=== PATIENT | male | born 1945 | race Caucasian/White ===

== ENCOUNTER 2021-12-02 14:24 | Inpatient (IN) | payer BC, MEDICARE ==
[~2021-12-02] VITALS: Ht 167.6 cm; Wt 61.2 kg
[2021-12-02] MEDS ORDERED: BACITRACIN ZINC OINT UDPKT TOP ONE (17:00)
[2021-12-02] MEDS ORDERED: TETANUS, DIPHTHERIA, PERTUSSIS VAC/PF 0.5ML (>10YR OLD) IM ONE (17:00)
[2021-12-02] MEDS ORDERED: LIDOCAINE HCL/PF 1% 10 MG/ML 5ML VIAL INFIL ONE (17:00)
[2021-12-02] MEDS ORDERED: SODIUM CHLORIDE 0.9% 1,000 ML IV ONE (17:15)
[2021-12-02 17:59] LABS: HEMATOCRIT. 36.5 % (42.0-52.0); MEAN CORPUSCULAR HEMOGLOBIN 31.2 pg (28.0-32.0); MEAN CORPUSCULAR VOLUME 95.2 fL (80.0-94.0); MEAN PLATELET VOLUME 6.3 fl (7.4-10.4); PLATELET 740 x1000/uL (130-400); RED BLOOD CELL COUNT 3.84 mill/uL (4.7-6.1); RED CELL DISTRIBUTION WIDTH 14.4 % (11.6-14.6)
[2021-12-02 18:23] LABS: CHLORIDE 89 mEq/L (98-107)
[2021-12-02 18:29] LABS: PLATELET ESTIMATE INCREASED
[2021-12-02 18:35] LABS: ETHANOL BLOOD < 10 mg/dL
[2021-12-02] MEDS ORDERED: ACETAMINOPHEN 325MG TABLET PO PRN ×2 (23:45)
[2021-12-02] MEDS ORDERED: GUAIFENESIN 200MG/10ML SUGAR FREE UDC PO PRN (23:45)
[2021-12-02] MEDS ORDERED: IPRATROPIUM/ALBUTEROL 0.5-3(2.5)MG/3ML NEB NEB PRN (23:45)
[2021-12-02] MEDS ORDERED: ONDANSETRON HCL 4MG/2ML INJ IV PRN (23:45)
[2021-12-02] MEDS ORDERED: ENOXAPARIN 40MG/0.4ML SYR SUBCUT SCH (23:45)
[2021-12-02] MEDS ORDERED: CLONIDINE 0.1MG TABLET PO PRN (23:45)
[2021-12-02] MEDS ORDERED: MAGNESIUM/ALUMINUM HYDROXIDE/SIMETHICONE 30ML UDC PO PRN (23:45)
[2021-12-02] MEDS ORDERED: MORPHINE SULFATE 2 MG/ML CPJ (NOT FOR IM USE) IV PRN (23:45)
[2021-12-02] MEDS ORDERED: HYDROCODONE/ACETAMINOPHEN 5/325MG TABLET PO PRN (23:45)
[2021-12-03 00:40] VITALS: BP 113/84
[2021-12-03] MEDS: SODIUM CHLORIDE 0.9% 1,000 ML IV SCH ×2 (00:46→11:20)
[2021-12-03 00:53] VITALS: BP 113/84
[2021-12-03] MEDS ORDERED: AMLO2.5T45 PO (02:45)
[2021-12-03 07:48] VITALS: BP 135/83
[2021-12-03 10:23] LABS: HEMATOCRIT. 30.9 % (42.0-52.0); HEMOGLOBIN. 10.5 g/dL (14.0-18.0); MEAN CORPUSCULAR VOLUME 94.3 fL (80.0-94.0); MEAN PLATELET VOLUME 6.4 fl (7.4-10.4); PLATELET 600 x1000/uL (130-400); RED BLOOD CELL COUNT 3.27 mill/uL (4.7-6.1); RED CELL DISTRIBUTION WIDTH 14.5 % (11.6-14.6)
[2021-12-03 12:19] VITALS: BP 124/82
[2021-12-03] MEDS ORDERED: MORPHINE SULFATE 2 MG/ML CPJ (NOT FOR IM USE) IV PRN (13:15)
[2021-12-03] MEDS ORDERED: NICARDIPINE 100 MG in SODIUM CHLORIDE 0.9% 60 ML IV PRN (13:15)
[2021-12-03] MEDS ORDERED: DEXT 5%/LACTATED RINGERS 1,000 ML IV SCH (13:15)
[2021-12-03] MEDS ORDERED: CEFAZOLIN SODIUM 1000MG/VIAL IV SCH (14:00)
[2021-12-03] MEDS ORDERED: ENOXAPARIN 40MG/0.4ML SYR SUBCUT SCH (14:00)
[2021-12-03 15:20] VITALS: BP 120/81
[2021-12-03 17:55] VITALS: BP 120/82
[2021-12-03] MEDS ORDERED: NALOXONE HCL 0.4MG/ML VIAL IV PRN (18:30)
[2021-12-04 07:40] LABS: PLATELET ESTIMATE INCREASED
== END 2021-12-03 19:00 | disposition home or self-care (01) | DRG 125 ==
LOC: ER 14:24 → SUPCPDRO 20:08 → 8WST 23:27 → ENRESERV 23:34
PROVIDERS: ADMIT Internal Medicine; ATTEND Internal Medicine
PROC: 0HQ1XZZ Repair Face Skin, External Approach (ICD-10-PCS; principal; 2021-12-02)
DX: S01.112A Laceration without foreign body of left eyelid and periocular area, initial encounter (principal); I10 Essential (primary) hypertension; S91.111A Laceration without foreign body of right great toe without damage to nail, initial encounter; W10.1XXA Fall (on)(from) sidewalk curb, initial encounter; Y93.01 Activity, walking, marching and hiking; Z96.649 Presence of unspecified artificial hip joint; Y92.89 Other specified places as the place of occurrence of the external cause; Y99.8 Other external cause status
CPT/HCPCS: 36415; 70480; 71045; 72141; 80048; 80053; 80320; 83735; 83880; 84100; 84484; 85025; 86850; 86900; 93005; 99291; J1650; J3490; J7030; L0172; G0480

== ENCOUNTER 2021-12-28 16:06 | Inpatient (IN) | payer BC ==
[~2021-12-28] VITALS: Ht 167.6 cm; Wt 66.3 kg
[~2021-12-28 16:06] MED LIST: AMLO2.5T45 PO
[2021-12-28 18:53] LABS: HEMATOCRIT. 24.1 % (42.0-52.0); HEMOGLOBIN. 7.8 g/dL (14.0-18.0); MEAN CORPUSCULAR HEMOGLOBIN 29.4 pg (28.0-32.0); MEAN CORPUSCULAR VOLUME 90.3 fL (80.0-94.0); MEAN PLATELET VOLUME 6.5 fl (7.4-10.4); PLATELET 577 x1000/uL (130-400); RED BLOOD CELL COUNT 2.67 mill/uL (4.7-6.1); RED CELL DISTRIBUTION WIDTH 16.4 % (11.6-14.6)
[2021-12-28 19:06] LABS: CHLORIDE 96 mEq/L (98-107)
[2021-12-28 19:43] LABS: ETHANOL BLOOD < 10 mg/dL
[2021-12-28 19:45] LABS: PLATELET ESTIMATE MARKEDLY INCREASED
[2021-12-28] MEDS ORDERED: SODIUM CHLORIDE 0.9% 1,000 ML IV NR (19:45)
[2021-12-28 19:55] LABS: TOTAL IRON BINDING CAPACITY 333 ug/dL (250-450)
[2021-12-29] VITALS (11 sets, daily range): BP systolic 110–155; BP diastolic 74–90
[2021-12-29] MEDS ORDERED: ONDANSETRON HCL 4MG/2ML INJ IV PRN (00:15)
[2021-12-29] MEDS ORDERED: DIPHENHYDRAMINE 50MG/ML VIAL IV PRN (00:15)
[2021-12-29] MEDS ORDERED: ACETAMINOPHEN 325MG TABLET PO PRN ×2 (00:15)
[2021-12-29] MEDS ORDERED: CLONIDINE 0.1MG TABLET PO PRN (00:15)
[2021-12-29] MEDS ORDERED: ZOLPIDEM TARTRATE 5MG TABLET PO PRN (00:15)
[2021-12-29] MEDS ORDERED: MAGNESIUM/ALUMINUM HYDROXIDE/SIMETHICONE 30ML UDC PO PRN (00:15)
[2021-12-29] MEDS: SODIUM CHLORIDE 0.9% 1,000 ML IV SCH ×2 (00:42→20:35)
[2021-12-29 08:13] LABS: BASOPHILS % 1.1 % (0.0-2.0); HEMATOCRIT. 26.7 % (42.0-52.0); HEMOGLOBIN. 8.6 g/dL (14.0-18.0); LYMPHOCYTES % 14.5 % (20.0-50.0); MEAN CORPUSCULAR HEMOGLOBIN 29.1 pg (28.0-32.0); MEAN CORPUSCULAR VOLUME 90.4 fL (80.0-94.0); MEAN PLATELET VOLUME 6.5 fl (7.4-10.4); MONOCYTES % 7.2 % (2.0-8.0); NEUTROPHILS % 74.2 % (40.0-76.0); PLATELET 514 x1000/uL (130-400); RED BLOOD CELL COUNT 2.96 mill/uL (4.7-6.1); RED CELL DISTRIBUTION WIDTH 15.6 % (11.6-14.6)
[2021-12-29] MEDS: THIAMINE HCL 100MG TABLET PO SCH (08:40)
[2021-12-29] MEDS: IRON SUCROSE COMPLEX 100 MG/5 ML ML IV SCH (08:41)
[2021-12-29 12:38] LABS: BASOPHILS % 0.5 % (0.0-2.0); EOSINOPHILS % 2.2 % (0.0-5.0); HEMATOCRIT. 26.2 % (42.0-52.0); HEMOGLOBIN. 8.6 g/dL (14.0-18.0); LYMPHOCYTES % 9.3 % (20.0-50.0); MEAN CORPUSCULAR HEMOGLOBIN 29.9 pg (28.0-32.0); MEAN CORPUSCULAR VOLUME 91.4 fL (80.0-94.0); MEAN PLATELET VOLUME 6.1 fl (7.4-10.4); MONOCYTES % 6.6 % (2.0-8.0); NEUTROPHILS % 81.4 % (40.0-76.0); PLATELET 463 x1000/uL (130-400); RED BLOOD CELL COUNT 2.87 mill/uL (4.7-6.1); RED CELL DISTRIBUTION WIDTH 15.9 % (11.6-14.6)
[2021-12-30] VITALS (7 sets, daily range): BP systolic 117–143; BP diastolic 72–90
[2021-12-30 06:29] LABS: BASOPHILS % 0.6 % (0.0-2.0); EOSINOPHILS % 2.3 % (0.0-5.0); HEMATOCRIT. 24.5 % (42.0-52.0); HEMOGLOBIN. 8.2 g/dL (14.0-18.0); LYMPHOCYTES % 10.3 % (20.0-50.0); MEAN CORPUSCULAR HEMOGLOBIN 30.1 pg (28.0-32.0); MEAN PLATELET VOLUME 6.5 fl (7.4-10.4); MONOCYTES % 4.8 % (2.0-8.0); PLATELET 480 x1000/uL (130-400); RED BLOOD CELL COUNT 2.73 mill/uL (4.7-6.1); RED CELL DISTRIBUTION WIDTH 15.7 % (11.6-14.6)
[2021-12-30] MEDS: THIAMINE HCL 100MG TABLET PO SCH (08:56)
[2021-12-30] MEDS: IRON SUCROSE COMPLEX 100 MG/5 ML ML IV SCH (08:56)
[2021-12-30] MEDS ORDERED: POTASSIUM CHLORIDE 20MEQ TABLET SR PO NR (10:30)
[2021-12-30] MEDS ORDERED: MAGNESIUM 2 G PREMIX 50 ML IV NR (12:00)
[2021-12-30] MEDS: SODIUM CHLORIDE 0.9% 1,000 ML IV SCH (16:15)
[2021-12-31] VITALS: BP 130/73
[2021-12-31 04:00] VITALS: BP 150/87
[2021-12-31 08:00] VITALS: BP 144/88
[2021-12-31] MEDS: THIAMINE HCL 100MG TABLET PO SCH (08:37)
[2021-12-31] MEDS: IRON SUCROSE COMPLEX 100 MG/5 ML ML IV SCH (08:37)
[2021-12-31 12:00] VITALS: BP 136/79
[2021-12-31] MEDS: SODIUM CHLORIDE 0.9% 1,000 ML IV SCH (12:15)
[2021-12-31 14:54] VITALS: BP 135/80
== END 2021-12-31 15:45 | disposition home or self-care (01) | DRG 812 ==
LOC: ER 16:06 → 8WST 20:39 → EDBEDREQTM 20:41 → EDBEDREQ 20:41 → ENRESERV 21:37
PROVIDERS: ADMIT Internal Medicine; ATTEND Internal Medicine
PROC: 30233N1 Transfusion of Nonautologous Red Blood Cells into Peripheral Vein, Percutaneous Approach (ICD-10-PCS; principal; 2021-12-28)
DX: D64.9 Anemia, unspecified (principal); E87.1 Hypo-osmolality and hyponatremia; N17.9 Acute kidney failure, unspecified; E61.1 Iron deficiency; I10 Essential (primary) hypertension; F10.10 Alcohol abuse, uncomplicated; M48.00 Spinal stenosis, site unspecified; M47.892 Other spondylosis, cervical region
CPT/HCPCS: 36415; 80048; 80053; 80320; 82962; 83540; 83550; 83735; 84484; 85025; 86850; 86900; 86920; 93005; 99285; J3475; J7030; P9016; G0480

== ENCOUNTER 2022-04-08 16:08 | Inpatient (IN) | payer BC, MEDICAID ==
[~2022-04-08] VITALS: Ht 182.9 cm; Wt 83.0 kg
[2022-04-08] MEDS ORDERED: VECURONIUM BROMIDE 10 MG/VIAL IV ONE (16:30)
[2022-04-08] MEDS ORDERED: SODIUM CHLORIDE 0.9% 1,000 ML IV ONE (16:30)
[2022-04-08 16:49] LABS: BASOPHILS % 0.5 % (0.0-2.0); EOSINOPHILS % 2.1 % (0.0-5.0); HEMATOCRIT. 35.4 % (42.0-52.0); HEMOGLOBIN. 11.9 g/dL (14.0-18.0); LYMPHOCYTES % 23.8 % (20.0-50.0); MEAN CORPUSCULAR HEMOGLOBIN 29.7 pg (28.0-32.0); MEAN CORPUSCULAR VOLUME 88.1 fL (80.0-94.0); MEAN PLATELET VOLUME 6.7 fl (7.4-10.4); MONOCYTES % 4.5 % (2.0-8.0); NEUTROPHILS % 69.1 % (40.0-76.0); PLATELET 488 x1000/uL (130-400); RED BLOOD CELL COUNT 4.02 mill/uL (4.7-6.1); RED CELL DISTRIBUTION WIDTH 18.3 % (11.6-14.6)
[2022-04-08 16:56] LABS: CHLORIDE 94 mEq/L (98-107)
[2022-04-08 17:35] LABS: BG BASE EXCESS 5.5 mmol/L (-2.0-2.0); BG CARBOXYHEMOGLOBIN 0.6 % (0.5-1.5); BG DEOXYHEMOGLOBIN 2.5 % (0.0-5.0); BG FRACTION INSPIRED OXYGEN 100; BG HCO3 ACT 34.3 mmol/L (22.0-26.0); BG METHEMOGLOBIN 0.3 % (0.0-1.5); BG OXYGEN SATURATION 97.5 % (92.0-98.5); BG OXYHEMOGLOBIN 96.6 % (94.0-97.0); BG PCO2 72.7 mmHg (35.0-45.0); BG PH 7.292 (7.350-7.450); BG PO2 104.2 mmHg (75.0-100.0); BG SAMPLE SITE RIGHT RADIAL; BG TOTAL HEMOGLOBIN 12.7 g/dL (12.0-18.0); BG VENT MODE VENT - AC
[2022-04-08] MEDS ORDERED: VANCOMYCIN 1G PREMIX 200 ML IV ONE (18:00)
[2022-04-08] MEDS ORDERED: PIPERACILLIN/TAZ 3.375G PREMIX 50 ML IV ONE (18:00)
[2022-04-08] MEDS ORDERED: ALBUTEROL (0.083%) 2.5MG/3ML NEB HHN ONE (21:45)
[2022-04-09] VITALS (8 sets, daily range): BP systolic 102–117; BP diastolic 62–77
[2022-04-09] MEDS: SODIUM CHLORIDE 0.9% 1,000 ML IV SCH ×2 (10:45→22:01)
[2022-04-09 10:51] LABS: BG BASE EXCESS 7.6 mmol/L (-2.0-2.0); BG CARBOXYHEMOGLOBIN 0.3 % (0.5-1.5); BG DEOXYHEMOGLOBIN 0.5 % (0.0-5.0); BG FRACTION INSPIRED OXYGEN 100; BG HCO3 ACT 31.7 mmol/L (22.0-26.0); BG METHEMOGLOBIN 0.4 % (0.0-1.5); BG OXYGEN SATURATION 99.5 % (92.0-98.5); BG OXYHEMOGLOBIN 98.8 % (94.0-97.0); BG PCO2 42.6 mmHg (35.0-45.0); BG PO2 205.8 mmHg (75.0-100.0); BG SAMPLE SITE LEFT RADIAL; BG TOTAL HEMOGLOBIN 12.8 g/dL (12.0-18.0); BG TOTAL RESPIRATORY RATE 18 b/min; BG VENT MODE PRVC
[2022-04-09] MEDS: PIPERACILLIN/TAZOBACTAM 3.375 G in DEXTROSE 5% WATER 50 ML IV SCH ×2 (13:36→21:55)
[2022-04-09 16:11] LABS: HEMATOCRIT. 32.2 % (42.0-52.0); HEMOGLOBIN. 10.8 g/dL (14.0-18.0); LYMPHOCYTES % 10.9 % (20.0-50.0); MEAN CORPUSCULAR HEMOGLOBIN 29.5 pg (28.0-32.0); MEAN PLATELET VOLUME 6.9 fl (7.4-10.4); MONOCYTES % 6.7 % (2.0-8.0); NEUTROPHILS % 79.4 % (40.0-76.0); PLATELET 362 x1000/uL (130-400); RED BLOOD CELL COUNT 3.66 mill/uL (4.7-6.1); RED CELL DISTRIBUTION WIDTH 18.2 % (11.6-14.6)
[2022-04-09 16:46] LABS: CHLORIDE 91 mEq/L (98-107)
[2022-04-09] MEDS: IPRATROPIUM/ALBUTEROL 0.5-3(2.5)MG/3ML NEB HHN SCH (18:00)
[2022-04-09] MEDS: METHYLPREDNISOLONE SOD SUCC 40 MG/ML VIAL IV SCH (18:54)
[2022-04-09 22:56] LABS: CLARITY URINE CLEAR (CLEAR); COLOR URINE YELLOW (YELLOW); KETONES URINE NEGATIVE (NEGATIVE); LEUKOCYTE ESTERASE URINE NEGATIVE (NEGATIVE); NITRITE URINE NEGATIVE (NEGATIVE); OCCULT BLOOD URINE NEGATIVE (NEGATIVE); PH URINE >=9.0 (4.5-8.0); PROTEIN URINE 1+ (NEGATIVE); SPECIFIC GRAVITY URINE 1.018 (1.005-1.030); UROBILINOGEN URINE 0.2 E.U./dL (0.2-1.0)
[2022-04-09] MEDS: MEROPENEM 1,000 MG in SODIUM CHLORIDE 0.9% 100 ML IV SCH (23:55)
[2022-04-10] VITALS (14 sets, daily range): BP systolic 98–142; BP diastolic 56–87
[2022-04-10] MEDS: SODIUM CHLORIDE 0.9% 1,000 ML IV SCH
[2022-04-10] MEDS: IPRATROPIUM/ALBUTEROL 0.5-3(2.5)MG/3ML NEB HHN SCH ×4 (01:12→20:24)
[2022-04-10] MEDS: METHYLPREDNISOLONE SOD SUCC 40 MG/ML VIAL IV SCH ×3 (02:27→17:01)
[2022-04-10] MEDS: MEROPENEM 1,000 MG in SODIUM CHLORIDE 0.9% 100 ML IV SCH ×3 (05:19→21:02)
[2022-04-10 05:47] LABS: HEMATOCRIT. 29.4 % (42.0-52.0); HEMOGLOBIN. 9.9 g/dL (14.0-18.0); MEAN CORPUSCULAR VOLUME 85.7 fL (80.0-94.0); MEAN PLATELET VOLUME 7.1 fl (7.4-10.4); PLATELET 373 x1000/uL (130-400); RED BLOOD CELL COUNT 3.43 mill/uL (4.7-6.1); RED CELL DISTRIBUTION WIDTH 18.2 % (11.6-14.6)
[2022-04-10 07:38] LABS: CHLORIDE 93 mEq/L (98-107)
[2022-04-10] MEDS: ENOXAPARIN 40MG/0.4ML SYR SUBCUT SCH (08:40)
[2022-04-10] MEDS: PANTOPRAZOLE SODIUM 40 MG/VIAL IV SCH (08:40)
[2022-04-10] MEDS: AMLODIPINE 5MG TABLET PO SCH (08:41)
[2022-04-10] MEDS ORDERED: POTASSIUM CHLORIDE 20MEQ/PACKET PEG NR (10:15)
[2022-04-10 13:26] LABS: PLATELET ESTIMATE NORMAL
[2022-04-11] VITALS (20 sets, daily range): BP systolic 108–148; BP diastolic 53–113
[2022-04-11] MEDS: IPRATROPIUM/ALBUTEROL 0.5-3(2.5)MG/3ML NEB HHN SCH ×4 (01:02→20:13)
[2022-04-11] MEDS: METHYLPREDNISOLONE SOD SUCC 40 MG/ML VIAL IV SCH ×3 (01:47→17:23)
[2022-04-11] MEDS: MEROPENEM 1,000 MG in SODIUM CHLORIDE 0.9% 100 ML IV SCH ×2 (05:20→13:44)
[2022-04-11 06:32] LABS: HEMATOCRIT. 28.4 % (42.0-52.0); HEMOGLOBIN. 9.8 g/dL (14.0-18.0); MEAN CORPUSCULAR HEMOGLOBIN 30.2 pg (28.0-32.0); MEAN CORPUSCULAR VOLUME 87.5 fL (80.0-94.0); MEAN PLATELET VOLUME 7.4 fl (7.4-10.4); PLATELET 370 x1000/uL (130-400); RED BLOOD CELL COUNT 3.24 mill/uL (4.7-6.1); RED CELL DISTRIBUTION WIDTH 18.5 % (11.6-14.6)
[2022-04-11 08:04] LABS: CHLORIDE 97 mEq/L (98-107)
[2022-04-11 08:56] LABS: BG BASE EXCESS 2.1 mmol/L (-2.0-2.0); BG CARBOXYHEMOGLOBIN 0.3 % (0.5-1.5); BG DEOXYHEMOGLOBIN 4.1 % (0.0-5.0); BG FRACTION INSPIRED OXYGEN 40; BG HCO3 ACT 25.7 mmol/L (22.0-26.0); BG METHEMOGLOBIN 0.2 % (0.0-1.5); BG OXYGEN SATURATION 95.9 % (92.0-98.5); BG OXYHEMOGLOBIN 95.4 % (94.0-97.0); BG PCO2 36.3 mmHg (35.0-45.0); BG PH 7.468 (7.350-7.450); BG PO2 78.7 mmHg (75.0-100.0); BG SAMPLE SITE RIGHT RADIAL; BG TOTAL HEMOGLOBIN 10.8 g/dL (12.0-18.0); BG VENT MODE PRVC
[2022-04-11] MEDS: PANTOPRAZOLE SODIUM 40 MG/VIAL IV SCH (10:17)
[2022-04-11] MEDS: ENOXAPARIN 40MG/0.4ML SYR SUBCUT SCH (10:18)
[2022-04-11] MEDS: AMLODIPINE 5MG TABLET PO SCH (10:18)
[2022-04-11] MEDS: SODIUM CHLORIDE 0.9% 1,000 ML IV SCH (10:19)
[2022-04-11 14:22] LABS: PLATELET ESTIMATE NORMAL
[2022-04-11] MEDS ORDERED: ACETAMINOPHEN 325MG TABLET PO PRN (19:10)
[2022-04-11] MEDS: FAMOTIDINE 20MG/2ML VIAL IV SCH (21:08)
[2022-04-12] VITALS (15 sets, daily range): BP systolic 112–142; BP diastolic 44–90
[2022-04-12] MEDS: IPRATROPIUM/ALBUTEROL 0.5-3(2.5)MG/3ML NEB HHN SCH ×4 (00:13→20:33)
[2022-04-12] MEDS: METHYLPREDNISOLONE SOD SUCC 40 MG/ML VIAL IV SCH ×3 (01:34→18:36)
[2022-04-12] MEDS: FAMOTIDINE 20MG/2ML VIAL IV SCH ×2 (08:36→21:10)
[2022-04-12] MEDS: AMLODIPINE 5MG TABLET PO SCH (08:36)
[2022-04-12] MEDS: ENOXAPARIN 40MG/0.4ML SYR SUBCUT SCH (08:36)
[2022-04-12] MEDS: CEFTRIAXONE 2 G in DEXTROSE 5% WATER 50 ML IV SCH (08:37)
[2022-04-13] VITALS (18 sets, daily range): BP systolic 121–165; BP diastolic 73–106
[2022-04-13] MEDS: IPRATROPIUM/ALBUTEROL 0.5-3(2.5)MG/3ML NEB HHN SCH ×4 (00:28→19:45)
[2022-04-13] MEDS: METHYLPREDNISOLONE SOD SUCC 40 MG/ML VIAL IV SCH ×3 (01:30→17:16)
[2022-04-13] MEDS: CEFTRIAXONE 2 G in DEXTROSE 5% WATER 50 ML IV SCH (08:04)
[2022-04-13] MEDS: AMLODIPINE 5MG TABLET PO SCH (08:04)
[2022-04-13] MEDS: FAMOTIDINE 20MG/2ML VIAL IV SCH ×2 (08:04→21:27)
[2022-04-13] MEDS: ENOXAPARIN 40MG/0.4ML SYR SUBCUT SCH (08:05)
[2022-04-14] VITALS (16 sets, daily range): BP systolic 119–156; BP diastolic 78–103
[2022-04-14] MEDS: METHYLPREDNISOLONE SOD SUCC 40 MG/ML VIAL IV SCH ×3 (01:55→16:06)
[2022-04-14] MEDS: FAMOTIDINE 20MG/2ML VIAL IV SCH ×2 (08:25→21:00)
[2022-04-14] MEDS: CEFTRIAXONE 2 G in DEXTROSE 5% WATER 50 ML IV SCH (08:25)
[2022-04-14] MEDS: ENOXAPARIN 40MG/0.4ML SYR SUBCUT SCH (08:26)
[2022-04-14] MEDS: AMLODIPINE 5MG TABLET PO SCH (08:26)
[2022-04-14] MEDS: IPRATROPIUM/ALBUTEROL 0.5-3(2.5)MG/3ML NEB HHN SCH ×2 (14:04→20:29)
[2022-04-15] VITALS (12 sets, daily range): BP systolic 138–173; BP diastolic 81–125
[2022-04-15] MEDS: IPRATROPIUM/ALBUTEROL 0.5-3(2.5)MG/3ML NEB HHN SCH ×2 (01:29→07:51)
[2022-04-15] MEDS: FAMOTIDINE 20MG/2ML VIAL IV SCH (08:19)
[2022-04-15] MEDS: CEFTRIAXONE 2 G in DEXTROSE 5% WATER 50 ML IV SCH (08:19)
[2022-04-15] MEDS: METHYLPREDNISOLONE SOD SUCC 40 MG/ML VIAL IV SCH (08:20)
[2022-04-15] MEDS: AMLODIPINE 5MG TABLET PO SCH (08:21)
[2022-04-15] MEDS: ENOXAPARIN 40MG/0.4ML SYR SUBCUT SCH (08:23)
[2022-04-15] MEDS ORDERED: HYDRALAZINE 20MG/ML VIAL IV NR (14:00)
== END 2022-04-15 14:37 | DRG 870 ==
LOC: ER 16:08 → EDBEDREQ 19:07 → 7EST 04-09 00:23 → MICUSO 04-09 01:19 → 5EST 04-09 11:14
PROVIDERS: ADMIT Internal Medicine; ATTEND Internal Medicine
PROC: 5A1955Z Respiratory Ventilation, Greater than 96 Consecutive Hours (ICD-10-PCS; principal; 2022-04-09)
DX: A41.51 Sepsis due to Escherichia coli [E. coli] (principal); J96.20 Acute and chronic respiratory failure, unspecified whether with hypoxia or hypercapnia; J15.6 Pneumonia due to other Gram-negative bacteria; E44.0 Moderate protein-calorie malnutrition; Z99.11 Dependence on respirator [ventilator] status; E87.1 Hypo-osmolality and hyponatremia; G93.49 Other encephalopathy; Z20.822 Contact with and (suspected) exposure to COVID-19; I10 Essential (primary) hypertension; R13.10 Dysphagia, unspecified; E78.5 Hyperlipidemia, unspecified; F10.20 Alcohol dependence, uncomplicated; Y95 Nosocomial condition; D64.9 Anemia, unspecified; Z96.649 Presence of unspecified artificial hip joint; Z93.0 Tracheostomy status; Z93.1 Gastrostomy status; Z68.24 Body mass index [BMI] 24.0-24.9, adult
CPT/HCPCS: 36415; 36600; 71045; 80048; 80053; 81003; 82375; 82805; 82962; 84145; 85025; 87070; 87077; 87186; 87426; 93005; 94002; 94003; 94640; 99291; C9113; C9803; J0360; J0696; J1650; J2185; J2543; J2920; J3370; J3490; J7030; J7050; J7060; U0003; U0005

== ENCOUNTER 2022-04-23 07:18 | Inpatient (IN) | payer BC, MEDICAID ==
[~2022-04-23] VITALS: Ht 177.8 cm; Wt 84.1 kg
[2022-04-23] VITALS (7 sets, daily range): BP systolic 85–120; BP diastolic 36–77
[2022-04-23] MEDS: IPRATROPIUM/ALBUTEROL 0.5-3(2.5)MG/3ML NEB HHN SCH ×3 (00:47→20:50)
[2022-04-23] MEDS ORDERED: SODIUM CHLORIDE 0.9% 1,000 ML IV ONE (07:45)
[2022-04-23 08:15] LABS: CHLORIDE 96 mEq/L (98-107)
[2022-04-23 08:24] LABS: HEMATOCRIT. 36.3 % (42.0-52.0); HEMOGLOBIN. 12.1 g/dL (14.0-18.0); MEAN CORPUSCULAR HEMOGLOBIN 29.9 pg (28.0-32.0); MEAN CORPUSCULAR VOLUME 89.6 fL (80.0-94.0); MEAN PLATELET VOLUME 6.9 fl (7.4-10.4); PLATELET 274 x1000/uL (130-400); RED BLOOD CELL COUNT 4.05 mill/uL (4.7-6.1); RED CELL DISTRIBUTION WIDTH 19.1 % (11.6-14.6)
[2022-04-23 08:24] LABS: BG CARBOXYHEMOGLOBIN 0.8 % (0.5-1.5); BG DEOXYHEMOGLOBIN 11.9 % (0.0-5.0); BG FRACTION INSPIRED OXYGEN 100; BG HCO3 ACT 32.9 mmol/L (22.0-26.0); BG METHEMOGLOBIN 0.2 % (0.0-1.5); BG OXYHEMOGLOBIN 87.1 % (94.0-97.0); BG PCO2 64.5 mmHg (35.0-45.0); BG PH 7.325 (7.350-7.450); BG PO2 58.3 mmHg (75.0-100.0); BG SAMPLE SITE RIGHT RADIAL; BG TOTAL HEMOGLOBIN 12.8 g/dL (12.0-18.0); BG TOTAL RESPIRATORY RATE 12 b/min; BG VENT MODE VENT - AC
[2022-04-23 08:27] LABS: PROTHROMBIN TIME 10.6 sec (9.6-11.0)
[2022-04-23 09:06] LABS: PLATELET ESTIMATE NORMAL
[2022-04-23] MEDS ORDERED: PIPERACILLIN/TAZ 3.375G PREMIX 50 ML IV SCH (09:30)
[2022-04-23] MEDS ORDERED: PIPERACILLIN/TAZOBACTAM 3.375GM/50ML PREMIX IV ONE (09:30)
[2022-04-23] MEDS: GUAIFENESIN 200MG/10ML SUGAR FREE UDC PO SCH ×2 (12:00→18:00)
[2022-04-23] MEDS: FUROSEMIDE 40MG/4ML VIAL IVP SCH (12:29)
[2022-04-23] MEDS: ACETYLCYSTEINE 100MG/ML 10% VIAL 4ML INH SCH ×3 (14:10→21:04)
[2022-04-23] MEDS ORDERED: ACETAMINOPHEN 325MG TABLET PO PRN (14:15)
[2022-04-23] MEDS ORDERED: ONDANSETRON HCL 4MG/2ML INJ IV PRN (14:15)
[2022-04-23] MEDS: METHYLPREDNISOLONE SOD SUCC 40 MG/ML VIAL IV SCH ×2 (17:29→22:20)
[2022-04-24] VITALS (27 sets, daily range): BP systolic 87–144; BP diastolic 34–117
[2022-04-24] MEDS: IPRATROPIUM/ALBUTEROL 0.5-3(2.5)MG/3ML NEB HHN SCH ×6 (00:48→20:36)
[2022-04-24] MEDS: GUAIFENESIN 200MG/10ML SUGAR FREE UDC PO SCH ×4 (01:13→18:13)
[2022-04-24 07:13] LABS: HEMATOCRIT. 32.6 % (42.0-52.0); HEMOGLOBIN. 11.1 g/dL (14.0-18.0); MEAN CORPUSCULAR HEMOGLOBIN 29.8 pg (28.0-32.0); MEAN CORPUSCULAR VOLUME 87.7 fL (80.0-94.0); PLATELET 262 x1000/uL (130-400); RED BLOOD CELL COUNT 3.71 mill/uL (4.7-6.1)
[2022-04-24] MEDS: METHYLPREDNISOLONE SOD SUCC 40 MG/ML VIAL IV SCH ×3 (07:17→21:52)
[2022-04-24 08:07] LABS: CHLORIDE 92 mEq/L (98-107)
[2022-04-24] MEDS: ACETYLCYSTEINE 100MG/ML 10% VIAL 4ML INH SCH ×2 (09:25→15:53)
[2022-04-24] MEDS: FUROSEMIDE 40MG/4ML VIAL IVP SCH (09:58)
[2022-04-24 13:06] LABS: PLATELET ESTIMATE NORMAL
[2022-04-24 13:10] LABS: BG BASE EXCESS 10.8 mmol/L (-2.0-2.0); BG CARBOXYHEMOGLOBIN 0.2 % (0.5-1.5); BG DEOXYHEMOGLOBIN 13.5 % (0.0-5.0); BG HCO3 ACT 33.6 mmol/L (22.0-26.0); BG METHEMOGLOBIN 0.3 % (0.0-1.5); BG OXYGEN SATURATION 86.4 % (92.0-98.5); BG PCO2 37.7 mmHg (35.0-45.0); BG PH 7.568 (7.350-7.450); BG PO2 48.9 mmHg (75.0-100.0); BG SAMPLE SITE RIGHT BRACHIAL; BG TOTAL HEMOGLOBIN 12.3 g/dL (12.0-18.0); BG VENT MODE VENT - AC
[2022-04-24 17:46] LABS: INR 1.1; PROTHROMBIN TIME 11.3 sec (9.6-11.0)
[2022-04-25] VITALS (16 sets, daily range): BP systolic 93–142; BP diastolic 59–116
[2022-04-25] MEDS: IPRATROPIUM/ALBUTEROL 0.5-3(2.5)MG/3ML NEB HHN SCH ×6 (00:14→20:43)
[2022-04-25] MEDS: ACETYLCYSTEINE 100MG/ML 10% VIAL 4ML INH SCH ×3 (00:18→16:05)
[2022-04-25] MEDS: GUAIFENESIN 200MG/10ML SUGAR FREE UDC PO SCH ×5 (01:23→23:51)
[2022-04-25] MEDS: METHYLPREDNISOLONE SOD SUCC 40 MG/ML VIAL IV SCH ×3 (07:12→22:00)
[2022-04-25] MEDS: FUROSEMIDE 40MG/4ML VIAL IVP SCH (09:20)
[2022-04-25] MEDS: PIPERACILLIN/TAZOBACTAM 3.375 G in DEXTROSE 5% WATER 50 ML IV SCH ×2 (11:49→22:00)
[2022-04-25] MEDS: SODIUM CHLORIDE 3% FOR INH 4ML UD NEB INH SCH (12:21)
[2022-04-25] MEDS ORDERED: SODIUM CHLORIDE 3% FOR INH 4ML UD NEB INH SCH (13:15)
[2022-04-26] VITALS (12 sets, daily range): BP systolic 92–120; BP diastolic 57–74
[2022-04-26] MEDS: IPRATROPIUM/ALBUTEROL 0.5-3(2.5)MG/3ML NEB HHN SCH ×6 (00:58→20:53)
[2022-04-26] MEDS: SODIUM CHLORIDE 3% FOR INH 4ML UD NEB INH SCH ×2 (00:59→12:44)
[2022-04-26] MEDS: GUAIFENESIN 200MG/10ML SUGAR FREE UDC PO SCH (06:00)
[2022-04-26] MEDS: PIPERACILLIN/TAZOBACTAM 3.375 G in DEXTROSE 5% WATER 50 ML IV SCH ×3 (06:00→21:38)
[2022-04-26] MEDS: METHYLPREDNISOLONE SOD SUCC 40 MG/ML VIAL IV SCH (06:00)
[2022-04-26 07:00] LABS: HEMATOCRIT. 30.5 % (42.0-52.0); HEMOGLOBIN. 10.5 g/dL (14.0-18.0); MEAN CORPUSCULAR HEMOGLOBIN 30.6 pg (28.0-32.0); MEAN CORPUSCULAR VOLUME 88.6 fL (80.0-94.0); RED BLOOD CELL COUNT 3.44 mill/uL (4.7-6.1); RED CELL DISTRIBUTION WIDTH 19.3 % (11.6-14.6)
[2022-04-26 07:27] LABS: CHLORIDE 93 mEq/L (98-107)
[2022-04-26] MEDS: ACETYLCYSTEINE 100MG/ML 10% VIAL 4ML INH SCH (09:03)
[2022-04-26] MEDS: FUROSEMIDE 40MG/4ML VIAL IVP SCH (09:08)
[2022-04-26] MEDS ORDERED: LORAZEPAM 2MG/ML CPJ IV PRN (09:45)
[2022-04-26] MEDS ORDERED: LORAZEPAM 2MG/ML CPJ IV NR (09:45)
[2022-04-26 12:21] LABS: PLATELET 208 x1000/uL (130-400)
[2022-04-26 12:28] LABS: PLATELET ESTIMATE NORMAL
[2022-04-26] MEDS: ENOXAPARIN 40MG/0.4ML SYR SUBCUT SCH (13:00)
[2022-04-27] VITALS (12 sets, daily range): BP systolic 98–132; BP diastolic 54–84
[2022-04-27] MEDS: IPRATROPIUM/ALBUTEROL 0.5-3(2.5)MG/3ML NEB HHN SCH ×6 (00:30→20:30)
[2022-04-27] MEDS: ACETYLCYSTEINE 100MG/ML 10% VIAL 4ML INH SCH ×2 (06:00→17:27)
[2022-04-27] MEDS: PIPERACILLIN/TAZOBACTAM 3.375 G in DEXTROSE 5% WATER 50 ML IV SCH ×2 (06:13→14:04)
[2022-04-27] MEDS: FUROSEMIDE 40MG/4ML VIAL IVP SCH (08:37)
[2022-04-27] MEDS: METHYLPREDNISOLONE SOD SUCC 40 MG/ML VIAL IV SCH (08:37)
[2022-04-27 08:53] LABS: BG BASE EXCESS 7.6 mmol/L (-2.0-2.0); BG CARBOXYHEMOGLOBIN 0.1 % (0.5-1.5); BG DEOXYHEMOGLOBIN 0.8 % (0.0-5.0); BG FRACTION INSPIRED OXYGEN 80; BG METHEMOGLOBIN 0.1 % (0.0-1.5); BG OXYGEN SATURATION 99.2 % (92.0-98.5); BG PCO2 38.7 mmHg (35.0-45.0); BG PH 7.521 (7.350-7.450); BG PO2 200.5 mmHg (75.0-100.0); BG SAMPLE SITE RIGHT RADIAL; BG TOTAL HEMOGLOBIN 11.9 g/dL (12.0-18.0); BG VENT MODE VENT - AC
[2022-04-27] MEDS: SODIUM CHLORIDE 3% FOR INH 4ML UD NEB INH SCH (12:48)
[2022-04-27] MEDS: ENOXAPARIN 40MG/0.4ML SYR SUBCUT SCH ×2 (13:00→14:02)
[2022-04-27] MEDS: CEFEPIME 1,000 MG in DEXTROSE 5% WATER 50 ML IV SCH (18:59)
[2022-04-28] VITALS (21 sets, daily range): BP systolic 103–151; BP diastolic 66–84
[2022-04-28] MEDS: ACETYLCYSTEINE 100MG/ML 10% VIAL 4ML INH SCH ×2 (00:23→08:46)
[2022-04-28] MEDS: IPRATROPIUM/ALBUTEROL 0.5-3(2.5)MG/3ML NEB HHN SCH ×6 (00:23→21:42)
[2022-04-28] MEDS: CEFEPIME 1,000 MG in DEXTROSE 5% WATER 50 ML IV SCH ×2 (05:20→17:29)
[2022-04-28 08:55] LABS: BG BASE EXCESS 10.1 mmol/L (-2.0-2.0); BG CARBOXYHEMOGLOBIN 0.1 % (0.5-1.5); BG DEOXYHEMOGLOBIN 2.7 % (0.0-5.0); BG FRACTION INSPIRED OXYGEN 40; BG HCO3 ACT 33.9 mmol/L (22.0-26.0); BG METHEMOGLOBIN 0.3 % (0.0-1.5); BG OXYGEN SATURATION 97.3 % (92.0-98.5); BG OXYHEMOGLOBIN 96.9 % (94.0-97.0); BG PCO2 42.7 mmHg (35.0-45.0); BG PH 7.518 (7.350-7.450); BG PO2 95.3 mmHg (75.0-100.0); BG SAMPLE SITE RIGHT RADIAL; BG TOTAL HEMOGLOBIN 11.2 g/dL (12.0-18.0); BG VENT MODE VENT - AC
[2022-04-28] MEDS: METHYLPREDNISOLONE SOD SUCC 40 MG/ML VIAL IV SCH (09:27)
[2022-04-28] MEDS: FUROSEMIDE 40MG/4ML VIAL IVP SCH (09:27)
[2022-04-28] MEDS: ENOXAPARIN 40MG/0.4ML SYR SUBCUT SCH (12:30)
[2022-04-29] VITALS: BP 131/75
[2022-04-29] MEDS: IPRATROPIUM/ALBUTEROL 0.5-3(2.5)MG/3ML NEB HHN SCH ×2 (00:43→04:26)
[2022-04-29 04:00] VITALS: BP 136/76
[2022-04-29 06:00] VITALS: BP 149/85
[2022-04-29 06:28] VITALS: BP 130/82
[2022-04-29] MEDS: CEFEPIME 1,000 MG in DEXTROSE 5% WATER 50 ML IV SCH (06:51)
== END 2022-04-29 08:10 | DRG 207 ==
LOC: ER 07:28 → 5EST 12:46
PROVIDERS: ADMIT Internal Medicine; ATTEND Internal Medicine
PROC: 5A1955Z Respiratory Ventilation, Greater than 96 Consecutive Hours (ICD-10-PCS; 2022-04-23)
PROC: 0W9B3ZZ Drainage of Left Pleural Cavity, Percutaneous Approach (ICD-10-PCS; principal; 2022-04-26)
DX: J96.21 Acute and chronic respiratory failure with hypoxia (principal); J18.9 Pneumonia, unspecified organism; G93.1 Anoxic brain damage, not elsewhere classified; Z99.11 Dependence on respirator [ventilator] status; E44.0 Moderate protein-calorie malnutrition; E87.1 Hypo-osmolality and hyponatremia; I50.30 Unspecified diastolic (congestive) heart failure; J98.19 Other pulmonary collapse; E87.29 Other acidosis; Y95 Nosocomial condition; Z20.822 Contact with and (suspected) exposure to COVID-19; I11.0 Hypertensive heart disease with heart failure; F10.21 Alcohol dependence, in remission; I67.1 Cerebral aneurysm, nonruptured; Z86.74 Personal history of sudden cardiac arrest; Z86.69 Personal history of other diseases of the nervous system and sense organs; Z93.0 Tracheostomy status; Z86.73 Personal history of transient ischemic attack (TIA), and cerebral infarction without residual deficits; Z93.1 Gastrostomy status; Z68.26 Body mass index [BMI] 26.0-26.9, adult
CPT/HCPCS: 32555; 36415; 36600; 71045; 76604; 80048; 80053; 82040; 82375; 82805; 83615; 84145; 84484; 85025; 87070; 87077; 87186; 87426; 88108; 93005; 94002; 94003; 94640; 99285; A6261; J0692; J1650; J1940; J2060; J2543; J2920; J7030; J7060; J7608

== ENCOUNTER 2022-05-28 13:14 | Inpatient (IN) | payer BC, MEDICAID ==
[~2022-05-28] VITALS: Ht 175.3 cm; Wt 88.0 kg
[2022-05-28] MEDS ORDERED: PIPERACILLIN/TAZ 3.375G PREMIX 50 ML IV ONE (14:45)
[2022-05-28] MEDS ORDERED: SODIUM CHLORIDE 0.9% 1000ML BAG (SEPSIS BOLUS) IV ONE (14:45)
[2022-05-28] MEDS ORDERED: VANCOMYCIN 1G PREMIX 200 ML IV ONE (14:45)
[2022-05-28 14:54] LABS: MEAN CORPUSCULAR HEMOGLOBIN 32.3 pg (28.0-32.0); MEAN CORPUSCULAR VOLUME 89.8 fL (80.0-94.0); PLATELET 172 x1000/uL (130-400); RED BLOOD CELL COUNT 1.44 mill/uL (4.7-6.1); RED CELL DISTRIBUTION WIDTH 18.2 % (11.6-14.6)
[2022-05-28 14:56] LABS: CHLORIDE 80 mEq/L (98-107)
[2022-05-28 14:58] LABS: HEMATOCRIT. 12.9 % (42.0-52.0); HEMOGLOBIN. 4.7 g/dL (14.0-18.0)
[2022-05-28 15:00] LABS: PROTHROMBIN TIME 10.9 sec (9.6-11.0)
[2022-05-28 15:37] LABS: CLARITY URINE TURBID (CLEAR); COLOR URINE ORANGE (YELLOW); KETONES URINE NEGATIVE (NEGATIVE); LEUKOCYTE ESTERASE URINE 3+ (NEGATIVE); NITRITE URINE NEGATIVE (NEGATIVE); OCCULT BLOOD URINE 3+ (NEGATIVE); PH URINE 8.5 (4.5-8.0); PROTEIN URINE 4+ (NEGATIVE); SPECIFIC GRAVITY URINE 1.016 (1.005-1.030); UROBILINOGEN URINE 0.2 E.U./dL (0.2-1.0)
[2022-05-28 16:27] LABS: BG CARBOXYHEMOGLOBIN 0.7 % (0.5-1.5); BG DEOXYHEMOGLOBIN 0.9 % (0.0-5.0); BG FRACTION INSPIRED OXYGEN 60; BG HCO3 ACT 41.6 mmol/L (22.0-26.0); BG METHEMOGLOBIN 0.4 % (0.0-1.5); BG OXYGEN SATURATION 99.1 % (92.0-98.5); BG PCO2 46.5 mmHg (35.0-45.0); BG PO2 139.8 mmHg (75.0-100.0); BG SAMPLE SITE RIGHT RADIAL; BG TOTAL HEMOGLOBIN 5.9 g/dL (12.0-18.0); BG VENT MODE VENT - AC
[2022-05-28 16:55] LABS: PLATELET ESTIMATE NORMAL
[2022-05-28 22:57] LABS: MEAN CORPUSCULAR HEMOGLOBIN 31.3 pg (28.0-32.0); MEAN CORPUSCULAR VOLUME 89.5 fL (80.0-94.0); MEAN PLATELET VOLUME 7.7 fl (7.4-10.4); PLATELET 142 x1000/uL (130-400); RED BLOOD CELL COUNT 1.93 mill/uL (4.7-6.1)
[2022-05-28 23:23] LABS: HEMATOCRIT. 17.3 % (42.0-52.0)
[2022-05-29 00:30] LABS: PLATELET ESTIMATE NORMAL
[2022-05-29 03:01] LABS: HEMOGLOBIN. 7.2 g/dL (14.0-18.0); MEAN CORPUSCULAR HEMOGLOBIN 30.5 pg (28.0-32.0); MEAN CORPUSCULAR VOLUME 87.9 fL (80.0-94.0); MEAN PLATELET VOLUME 7.7 fl (7.4-10.4); PLATELET 143 x1000/uL (130-400); RED BLOOD CELL COUNT 2.34 mill/uL (4.7-6.1)
[2022-05-29 03:05] LABS: HEMATOCRIT. 20.6 % (42.0-52.0)
[2022-05-29 03:18] LABS: PLATELET ESTIMATE NORMAL
[2022-05-29] MEDS: ALBUTEROL (0.083%) 2.5MG/3ML NEB HHN SCH ×2 (09:45→19:38)
[2022-05-29] MEDS ORDERED: ALBUTEROL (0.083%) 2.5MG/3ML NEB HHN PRN (13:00)
[2022-05-29] MEDS ORDERED: IPRATROPIUM BROMIDE (0.02%) 0.5MG/2.5ML NEB HHN PRN (13:00)
[2022-05-29] MEDS: IPRATROPIUM BROMIDE (0.02%) 0.5MG/2.5ML NEB HHN SCH ×2 (15:10→19:38)
[2022-05-29] MEDS: DEXT 5%/0.9% NACL 1,000 ML IV SCH (17:09)
[2022-05-29] MEDS: CEFEPIME 2,000 MG in DEXT 5% WATER 100 ML IV SCH (17:59)
[2022-05-29 19:06] LABS: MEAN CORPUSCULAR VOLUME 88.9 fL (80.0-94.0); MEAN PLATELET VOLUME 8.1 fl (7.4-10.4); PLATELET 144 x1000/uL (130-400); RED BLOOD CELL COUNT 2.36 mill/uL (4.7-6.1); RED CELL DISTRIBUTION WIDTH 18.3 % (11.6-14.6)
[2022-05-29 19:17] LABS: HEMOGLOBIN. 7.1 g/dL (14.0-18.0)
[2022-05-29 19:22] LABS: CHLORIDE 89 mEq/L (98-107)
[2022-05-29 19:32] LABS: TOTAL IRON BINDING CAPACITY 163 ug/dL (250-450)
[2022-05-29 20:14] LABS: FERRITIN 554 ng/mL (22-322)
[2022-05-29 20:24] LABS: VITAMIN B12 SERUM 1654 pg/mL (211-911)
[2022-05-29 22:10] LABS: PLATELET ESTIMATE NORMAL
[2022-05-30] MEDS: DEXT 5%/0.9% NACL 1,000 ML IV SCH ×2 (08:59→23:29)
[2022-05-30] MEDS: CEFEPIME 2,000 MG in DEXT 5% WATER 100 ML IV SCH ×2 (09:27→17:50)
[2022-05-30 09:36] LABS: BG BASE EXCESS 11.9 mmol/L (-2.0-2.0); BG CARBOXYHEMOGLOBIN 0.1 % (0.5-1.5); BG DEOXYHEMOGLOBIN 4.2 % (0.0-5.0); BG FRACTION INSPIRED OXYGEN 40; BG HCO3 ACT 38.3 mmol/L (22.0-26.0); BG METHEMOGLOBIN 0.3 % (0.0-1.5); BG OXYGEN SATURATION 95.8 % (92.0-98.5); BG OXYHEMOGLOBIN 95.4 % (94.0-97.0); BG PCO2 60.3 mmHg (35.0-45.0); BG PH 7.421 (7.350-7.450); BG PO2 74.5 mmHg (75.0-100.0); BG SAMPLE SITE RIGHT RADIAL; BG TOTAL HEMOGLOBIN 10.7 g/dL (12.0-18.0); BG VENT MODE VENT - AC
[2022-05-30] MEDS: IPRATROPIUM BROMIDE (0.02%) 0.5MG/2.5ML NEB HHN SCH ×3 (09:45→19:00)
[2022-05-30] MEDS: PANTOPRAZOLE SODIUM 40 MG/VIAL IV SCH (10:24)
[2022-05-30] MEDS: ALBUTEROL (0.083%) 2.5MG/3ML NEB HHN SCH ×2 (14:15→18:00)
[2022-05-30 17:49] LABS: HEMATOCRIT. 26.1 % (42.0-52.0); HEMOGLOBIN. 8.9 g/dL (14.0-18.0); MEAN CORPUSCULAR HEMOGLOBIN 30.8 pg (28.0-32.0); MEAN CORPUSCULAR VOLUME 90.9 fL (80.0-94.0); MEAN PLATELET VOLUME 8.3 fl (7.4-10.4); PLATELET 139 x1000/uL (130-400); RED BLOOD CELL COUNT 2.87 mill/uL (4.7-6.1); RED CELL DISTRIBUTION WIDTH 17.6 % (11.6-14.6)
[2022-05-30] MEDS ORDERED: LACTULOSE 20G/30ML UDC PO NR (18:15)
[2022-05-30] MEDS ORDERED: NA PHOS,M-B/NA PHOS,DI-BA ENEMA 118ML PR NR (18:15)
[2022-05-30 19:57] LABS: PLATELET ESTIMATE NORMAL
[2022-05-30 22:00] VITALS: BP 151/87
[2022-05-30 22:30] VITALS: BP 153/89
[2022-05-30] MEDS: MEROPENEM 1,000 MG in SODIUM CHLORIDE 0.9% 100 ML IV SCH (23:27)
[2022-05-31] VITALS (12 sets, daily range): BP systolic 88–162; BP diastolic 58–84
[2022-05-31] MEDS: ALBUTEROL (0.083%) 2.5MG/3ML NEB HHN SCH ×4 (00:48→19:58)
[2022-05-31] MEDS: IPRATROPIUM BROMIDE (0.02%) 0.5MG/2.5ML NEB HHN SCH ×4 (00:49→19:58)
[2022-05-31] MEDS ORDERED: ENOX40DI8 SUBCUT (01:02)
[2022-05-31] MEDS ORDERED: CLON0.1T PO (01:02)
[2022-05-31] MEDS ORDERED: ONDA4TAB50 PO (01:02)
[2022-05-31] MEDS ORDERED: FURO40TA5 PO (01:02)
[2022-05-31] MEDS ORDERED: LORA2VIA8 (01:02)
[2022-05-31] MEDS ORDERED: AMLO5TAB88 PO (01:02)
[2022-05-31] MEDS ORDERED: ATROV IH (01:02)
[2022-05-31] MEDS ORDERED: ACETYLCYSTEINE 200MG/ML 20% VIAL 4ML PO NR (06:30)
[2022-05-31 07:02] LABS: BG BASE EXCESS 9.2 mmol/L (-2.0-2.0); BG CARBOXYHEMOGLOBIN 0.5 % (0.5-1.5); BG DEOXYHEMOGLOBIN 2.9 % (0.0-5.0); BG HCO3 ACT 35.2 mmol/L (22.0-26.0); BG METHEMOGLOBIN 0.2 % (0.0-1.5); BG OXYGEN SATURATION 97.1 % (92.0-98.5); BG OXYHEMOGLOBIN 96.4 % (94.0-97.0); BG PCO2 55.4 mmHg (35.0-45.0); BG PH 7.421 (7.350-7.450); BG PO2 95.2 mmHg (75.0-100.0); BG SAMPLE SITE RIGHT RADIAL; BG TOTAL HEMOGLOBIN 11.4 g/dL (12.0-18.0); BG VENT MODE VENT - AC
[2022-05-31] MEDS: ACETYLCYSTEINE 100MG/ML 10% VIAL 4ML INH SCH ×2 (08:05→14:52)
[2022-05-31] MEDS: PANTOPRAZOLE SODIUM 40 MG/VIAL IV SCH (08:27)
[2022-05-31] MEDS: MEROPENEM 1,000 MG in SODIUM CHLORIDE 0.9% 100 ML IV SCH (08:27)
[2022-05-31] MEDS: DEXT 5%/0.9% NACL 1,000 ML IV SCH ×2 (08:28→22:29)
[2022-05-31 09:39] LABS: HEMATOCRIT. 28.9 % (42.0-52.0); MEAN CORPUSCULAR HEMOGLOBIN 30.6 pg (28.0-32.0); MEAN CORPUSCULAR VOLUME 88.8 fL (80.0-94.0); MEAN PLATELET VOLUME 7.9 fl (7.4-10.4); PLATELET 156 x1000/uL (130-400); RED BLOOD CELL COUNT 3.25 mill/uL (4.7-6.1); RED CELL DISTRIBUTION WIDTH 17.4 % (11.6-14.6)
[2022-05-31] MEDS ORDERED: POTASSIUM CHLORIDE INJ 40 MEQ in DEXT 5% WATER 250 ML IV ONE (10:00)
[2022-05-31] MEDS: KCL 20MEQ/100ML X 2 FOR TOTAL KCL 40MEQ/200ML IV SCH ×2 (12:54→14:55)
[2022-05-31] MEDS ORDERED: NA PHOS,M-B/NA PHOS,DI-BA ENEMA 118ML PR NR (13:15)
[2022-05-31 13:22] LABS: PLATELET ESTIMATE NORMAL
[2022-05-31 14:43] LABS: CREATINE KINASE 45 IU/L (39-308)
[2022-05-31] MEDS: SODIUM CHLORIDE 3% FOR INH 4ML UD NEB INH SCH (15:52)
[2022-05-31] MEDS: METOCLOPRAMIDE HCL 10MG/2ML VIAL IV SCH (17:15)
[2022-05-31 18:50] LABS: CLARITY URINE TURBID (CLEAR); COLOR URINE ORANGE (YELLOW); KETONES URINE NEGATIVE (NEGATIVE); LEUKOCYTE ESTERASE URINE 3+ (NEGATIVE); NITRITE URINE NEGATIVE (NEGATIVE); OCCULT BLOOD URINE 3+ (NEGATIVE); PH URINE 5.5 (4.5-8.0); PROTEIN URINE 3+ (NEGATIVE); SPECIFIC GRAVITY URINE 1.016 (1.005-1.030); UROBILINOGEN URINE 0.2 E.U./dL (0.2-1.0)
[2022-05-31 19:43] LABS: CREATININE URINE RANDOM 65.9 mg/dL
[2022-05-31] MEDS: MEROPENEM 500MG in NORMAL SALINE 50ML IV SCH (22:29)
[2022-06-01] VITALS (13 sets, daily range): BP systolic 98–169; BP diastolic 51–94
[2022-06-01] MEDS: IPRATROPIUM BROMIDE (0.02%) 0.5MG/2.5ML NEB HHN SCH ×4 (00:44→20:04)
[2022-06-01] MEDS: ALBUTEROL (0.083%) 2.5MG/3ML NEB HHN SCH ×4 (00:45→20:04)
[2022-06-01] MEDS ORDERED: ACETYLCYSTEINE 100MG/ML 10% VIAL 4ML INH SCH (00:45)
[2022-06-01] MEDS: METOCLOPRAMIDE HCL 10MG/2ML VIAL IV SCH ×5 (01:25→23:35)
[2022-06-01] MEDS: ACETAMINOPHEN 650MG/20.3ML UDC PO PRN (03:08)
[2022-06-01 06:57] LABS: HEMATOCRIT. 24.9 % (42.0-52.0); HEMOGLOBIN. 8.5 g/dL (14.0-18.0); MEAN CORPUSCULAR HEMOGLOBIN 30.9 pg (28.0-32.0); MEAN CORPUSCULAR VOLUME 90.5 fL (80.0-94.0); MEAN PLATELET VOLUME 7.8 fl (7.4-10.4); PLATELET 142 x1000/uL (130-400); RED BLOOD CELL COUNT 2.75 mill/uL (4.7-6.1); RED CELL DISTRIBUTION WIDTH 17.3 % (11.6-14.6)
[2022-06-01 07:32] LABS: INR 1.2; PROTHROMBIN TIME 12.4 sec (9.6-11.0)
[2022-06-01] MEDS: ACETYLCYSTEINE 200MG/ML 20% VIAL 4ML INH SCH ×2 (08:34→14:05)
[2022-06-01] MEDS: PANTOPRAZOLE SODIUM 40 MG/VIAL IV SCH (08:39)
[2022-06-01] MEDS: DOCUSATE SODIUM SUGAR FREE 100MG/10ML UDC GT SCH (08:39)
[2022-06-01] MEDS: MEROPENEM 500MG in NORMAL SALINE 50ML IV SCH ×2 (08:39→20:45)
[2022-06-01] MEDS: DEXT 5%/0.9% NACL 1,000 ML IV SCH (11:25)
[2022-06-01 16:55] LABS: PLATELET ESTIMATE NORMAL
[2022-06-02] VITALS (13 sets, daily range): BP systolic 85–123; BP diastolic 47–76
[2022-06-02] MEDS: ACETYLCYSTEINE 200MG/ML 20% VIAL 4ML INH SCH ×4 (00:49→20:40)
[2022-06-02] MEDS: ALBUTEROL (0.083%) 2.5MG/3ML NEB HHN SCH ×4 (00:50→20:40)
[2022-06-02] MEDS: IPRATROPIUM BROMIDE (0.02%) 0.5MG/2.5ML NEB HHN SCH ×4 (00:50→20:40)
[2022-06-02] MEDS: DEXT 5%/0.9% NACL 1,000 ML IV SCH ×2 (02:43→16:58)
[2022-06-02] MEDS: METOCLOPRAMIDE HCL 10MG/2ML VIAL IV SCH ×4 (05:33→23:09)
[2022-06-02 07:55] LABS: HEMATOCRIT. 26.1 % (42.0-52.0); HEMOGLOBIN. 8.9 g/dL (14.0-18.0); MEAN CORPUSCULAR HEMOGLOBIN 30.6 pg (28.0-32.0); MEAN CORPUSCULAR VOLUME 89.8 fL (80.0-94.0); MEAN PLATELET VOLUME 8.1 fl (7.4-10.4); PLATELET 171 x1000/uL (130-400); RED BLOOD CELL COUNT 2.91 mill/uL (4.7-6.1)
[2022-06-02 08:11] LABS: ANTI-NUCLEAR ANTIBODIES DIRECT Negative (Negative)
[2022-06-02] MEDS: MEROPENEM 500MG in NORMAL SALINE 50ML IV SCH ×2 (08:15→20:09)
[2022-06-02] MEDS: PANTOPRAZOLE SODIUM 40 MG/VIAL IV SCH (08:15)
[2022-06-02] MEDS: DOCUSATE SODIUM SUGAR FREE 100MG/10ML UDC GT SCH (08:48)
[2022-06-02 08:57] LABS: BG BASE EXCESS 2.6 mmol/L (-2.0-2.0); BG CARBOXYHEMOGLOBIN 0.3 % (0.5-1.5); BG DEOXYHEMOGLOBIN 2.4 % (0.0-5.0); BG FRACTION INSPIRED OXYGEN 40; BG HCO3 ACT 26.6 mmol/L (22.0-26.0); BG METHEMOGLOBIN 0.3 % (0.0-1.5); BG OXYGEN SATURATION 97.6 % (92.0-98.5); BG PCO2 38.8 mmHg (35.0-45.0); BG PH 7.454 (7.350-7.450); BG PO2 94.2 mmHg (75.0-100.0); BG SAMPLE SITE LEFT RADIAL; BG TOTAL HEMOGLOBIN 9.3 g/dL (12.0-18.0); BG VENT MODE VENT - AC
[2022-06-02] MEDS: SODIUM CHLORIDE 3% FOR INH 4ML UD NEB INH SCH (14:42)
[2022-06-02 16:32] LABS: PLATELET ESTIMATE NORMAL
[2022-06-02] MEDS ORDERED: LACTULOSE 20G/30ML UDC PO NR (17:15)
[2022-06-03] VITALS (12 sets, daily range): BP systolic 92–138; BP diastolic 54–82
[2022-06-03] MEDS: ALBUTEROL (0.083%) 2.5MG/3ML NEB HHN SCH ×5 (00:45→20:16)
[2022-06-03] MEDS: ACETYLCYSTEINE 200MG/ML 20% VIAL 4ML INH SCH ×4 (00:45→20:16)
[2022-06-03] MEDS: IPRATROPIUM BROMIDE (0.02%) 0.5MG/2.5ML NEB HHN SCH ×5 (00:45→20:16)
[2022-06-03] MEDS: DEXT 5%/0.9% NACL 1,000 ML IV SCH ×2 (05:12→17:26)
[2022-06-03] MEDS: METOCLOPRAMIDE HCL 10MG/2ML VIAL IV SCH ×3 (05:12→17:25)
[2022-06-03 06:51] LABS: INR 1.1; PROTHROMBIN TIME 11.9 sec (9.6-11.0)
[2022-06-03 06:58] LABS: HEMATOCRIT. 25.7 % (42.0-52.0); HEMOGLOBIN. 8.9 g/dL (14.0-18.0); MEAN CORPUSCULAR HEMOGLOBIN 30.9 pg (28.0-32.0); MEAN CORPUSCULAR VOLUME 89.6 fL (80.0-94.0); PLATELET 167 x1000/uL (130-400); RED BLOOD CELL COUNT 2.87 mill/uL (4.7-6.1); RED CELL DISTRIBUTION WIDTH 17.7 % (11.6-14.6)
[2022-06-03] MEDS: SODIUM CHLORIDE 3% FOR INH 4ML UD NEB INH SCH (08:08)
[2022-06-03] MEDS: PANTOPRAZOLE SODIUM 40 MG/VIAL IV SCH (09:58)
[2022-06-03] MEDS: DOCUSATE SODIUM SUGAR FREE 100MG/10ML UDC GT SCH (09:58)
[2022-06-03] MEDS: MEROPENEM 500MG in NORMAL SALINE 50ML IV SCH ×2 (09:59→20:43)
[2022-06-03] MEDS ORDERED: BISACODYL 10MG SUPP PR NR (10:30)
[2022-06-03] MEDS ORDERED: SORBITOL 70% SOLN 30ML PO NR (10:30)
[2022-06-03 19:28] LABS: BG BASE EXCESS 2.8 mmol/L (-2.0-2.0); BG CARBOXYHEMOGLOBIN 0.1 % (0.5-1.5); BG DEOXYHEMOGLOBIN 1.1 % (0.0-5.0); BG FRACTION INSPIRED OXYGEN 100; BG HCO3 ACT 28.5 mmol/L (22.0-26.0); BG METHEMOGLOBIN 0.5 % (0.0-1.5); BG OXYGEN SATURATION 98.9 % (92.0-98.5); BG OXYHEMOGLOBIN 98.3 % (94.0-97.0); BG PH 7.374 (7.350-7.450); BG PO2 204.2 mmHg (75.0-100.0); BG SAMPLE SITE LEFT RADIAL; BG TOTAL HEMOGLOBIN 9.3 g/dL (12.0-18.0); BG VENT MODE VENT - AC
[2022-06-03 20:18] LABS: HEMATOCRIT. 26.6 % (42.0-52.0); HEMOGLOBIN. 8.9 g/dL (14.0-18.0); MEAN CORPUSCULAR HEMOGLOBIN 30.3 pg (28.0-32.0); MEAN CORPUSCULAR VOLUME 90.5 fL (80.0-94.0); MEAN PLATELET VOLUME 8.8 fl (7.4-10.4); PLATELET 158 x1000/uL (130-400); RED BLOOD CELL COUNT 2.94 mill/uL (4.7-6.1); RED CELL DISTRIBUTION WIDTH 17.6 % (11.6-14.6)
[2022-06-03 20:32] LABS: CHLORIDE 102 mEq/L (98-107)
[2022-06-03 21:23] LABS: PLATELET ESTIMATE NORMAL
[2022-06-03 21:37] LABS: PLATELET ESTIMATE NORMAL
[2022-06-04] VITALS (13 sets, daily range): BP systolic 84–105; BP diastolic 50–63
[2022-06-04] MEDS: METOCLOPRAMIDE HCL 10MG/2ML VIAL IV SCH ×4 (00:31→17:21)
[2022-06-04] MEDS: ACETYLCYSTEINE 200MG/ML 20% VIAL 4ML INH SCH ×3 (02:17→15:28)
[2022-06-04] MEDS: DEXT 5%/0.9% NACL 1,000 ML IV SCH ×2 (05:14→18:48)
[2022-06-04] MEDS ORDERED: LIDOCAINE HCL/PF 1% 2ML VIAL ONE (06:00)
[2022-06-04 08:30] LABS: HEMATOCRIT. 24.6 % (42.0-52.0); HEMOGLOBIN. 8.3 g/dL (14.0-18.0); MEAN CORPUSCULAR HEMOGLOBIN 30.4 pg (28.0-32.0); MEAN PLATELET VOLUME 8.4 fl (7.4-10.4); PLATELET 165 x1000/uL (130-400); RED BLOOD CELL COUNT 2.73 mill/uL (4.7-6.1); RED CELL DISTRIBUTION WIDTH 17.4 % (11.6-14.6)
[2022-06-04 08:38] LABS: BG BASE EXCESS 3.4 mmol/L (-2.0-2.0); BG CARBOXYHEMOGLOBIN 0.4 % (0.5-1.5); BG DEOXYHEMOGLOBIN 3.6 % (0.0-5.0); BG HCO3 ACT 27.7 mmol/L (22.0-26.0); BG METHEMOGLOBIN 0.3 % (0.0-1.5); BG OXYGEN SATURATION 96.4 % (92.0-98.5); BG OXYHEMOGLOBIN 95.7 % (94.0-97.0); BG PCO2 41.2 mmHg (35.0-45.0); BG PH 7.446 (7.350-7.450); BG SAMPLE SITE LEFT RADIAL; BG TOTAL HEMOGLOBIN 8.1 g/dL (12.0-18.0); BG VENT MODE VENT - AC
[2022-06-04] MEDS: IPRATROPIUM BROMIDE (0.02%) 0.5MG/2.5ML NEB HHN SCH (08:40)
[2022-06-04] MEDS: ALBUTEROL (0.083%) 2.5MG/3ML NEB HHN SCH ×2 (08:40→15:29)
[2022-06-04] MEDS: MEROPENEM 500MG in NORMAL SALINE 50ML IV SCH ×2 (08:56→20:45)
[2022-06-04] MEDS: PANTOPRAZOLE SODIUM 40 MG/VIAL IV SCH (08:56)
[2022-06-04] MEDS: DOCUSATE SODIUM SUGAR FREE 100MG/10ML UDC GT SCH (09:03)
[2022-06-04 10:22] LABS: PLATELET ESTIMATE NORMAL
[2022-06-04] MEDS: SODIUM CHLORIDE 3% FOR INH 4ML UD NEB INH SCH (10:23)
[2022-06-04] MEDS: LEVOFLOXACIN 500MG TABLET PO SCH (18:50)
[2022-06-04 20:54] LABS: CREATININE URINE (RAW) 70.2 mg/dl
[2022-06-05] VITALS (12 sets, daily range): BP systolic 94–121; BP diastolic 53–72
[2022-06-05] MEDS: METOCLOPRAMIDE HCL 10MG/2ML VIAL IV SCH ×4 (00:16→17:25)
[2022-06-05] MEDS: ACETYLCYSTEINE 200MG/ML 20% VIAL 4ML INH SCH ×4 (00:19→20:30)
[2022-06-05] MEDS: MEROPENEM 500MG in NORMAL SALINE 50ML IV SCH ×2 (08:45→20:29)
[2022-06-05] MEDS: DOCUSATE SODIUM SUGAR FREE 100MG/10ML UDC GT SCH (08:48)
[2022-06-05] MEDS: PANTOPRAZOLE SODIUM 40 MG/VIAL IV SCH (08:48)
[2022-06-05] MEDS: DEXT 5%/0.9% NACL 1,000 ML IV SCH ×2 (08:50→23:09)
[2022-06-05] MEDS ORDERED: ALBUTEROL (0.083%) 2.5MG/3ML NEB HHN SCH ×3 (09:00)
[2022-06-05] MEDS: ALBUTEROL (0.083%) 2.5MG/3ML NEB HHN SCH ×3 (09:15→20:34)
[2022-06-05] MEDS: IPRATROPIUM BROMIDE (0.02%) 0.5MG/2.5ML NEB HHN SCH ×2 (09:15→13:47)
[2022-06-05] MEDS ORDERED: IPRATROPIUM/ALBUTEROL 0.5-3(2.5)MG/3ML NEB HHN SCH (12:00)
[2022-06-06] VITALS (13 sets, daily range): BP systolic 95–134; BP diastolic 54–68
[2022-06-06] MEDS: METOCLOPRAMIDE HCL 10MG/2ML VIAL IV SCH ×5 (00:17→23:37)
[2022-06-06] MEDS: ALBUTEROL (0.083%) 2.5MG/3ML NEB HHN SCH ×4 (01:32→20:24)
[2022-06-06] MEDS: IPRATROPIUM BROMIDE (0.02%) 0.5MG/2.5ML NEB HHN SCH ×4 (01:32→20:25)
[2022-06-06] MEDS: ACETYLCYSTEINE 200MG/ML 20% VIAL 4ML INH SCH (01:32)
[2022-06-06 07:32] LABS: HEMATOCRIT. 24.4 % (42.0-52.0); HEMOGLOBIN. 8.3 g/dL (14.0-18.0); MEAN CORPUSCULAR HEMOGLOBIN 30.3 pg (28.0-32.0); MEAN CORPUSCULAR VOLUME 89.6 fL (80.0-94.0); MEAN PLATELET VOLUME 8.3 fl (7.4-10.4); PLATELET 234 x1000/uL (130-400); RED BLOOD CELL COUNT 2.73 mill/uL (4.7-6.1); RED CELL DISTRIBUTION WIDTH 17.3 % (11.6-14.6)
[2022-06-06] MEDS: DOCUSATE SODIUM SUGAR FREE 100MG/10ML UDC GT SCH (08:42)
[2022-06-06] MEDS: PANTOPRAZOLE SODIUM 40 MG/VIAL IV SCH (08:42)
[2022-06-06] MEDS: MEROPENEM 500MG in NORMAL SALINE 50ML IV SCH ×2 (08:42→20:05)
[2022-06-06] MEDS: SODIUM CHLORIDE 3% FOR INH 4ML UD NEB INH SCH (10:00)
[2022-06-06] MEDS ORDERED: HEPARIN 1000 UNITS/ML 10ML ONE (12:50)
[2022-06-06] MEDS ORDERED: LIDOCAINE HCL 1% 30ML VIAL (10MG/ML) ONE (12:50)
[2022-06-06] MEDS ORDERED: SODIUM CHLORIDE 3% FOR INH 4ML UD NEB INH NR (13:30)
[2022-06-06] MEDS ORDERED: BISACODYL 10MG SUPP PR NR (14:30)
[2022-06-06] MEDS ORDERED: BISACODYL 10MG SUPP PR PRN (14:30)
[2022-06-06 16:56] LABS: HEPATITIS B SURFACE ANTIGEN NEGATIVE
[2022-06-06] MEDS: LEVOFLOXACIN 500MG TABLET PO SCH (18:51)
[2022-06-06] MEDS: ACETAMINOPHEN 650MG/20.3ML UDC PO PRN (20:05)
[2022-06-06 21:16] LABS: PLATELET ESTIMATE NORMAL
[2022-06-07] VITALS (11 sets, daily range): BP systolic 101–123; BP diastolic 57–80
[2022-06-07] MEDS: ACETYLCYSTEINE 100MG/ML 10% VIAL 4ML INH SCH ×2 (01:04→08:21)
[2022-06-07] MEDS: IPRATROPIUM BROMIDE (0.02%) 0.5MG/2.5ML NEB HHN SCH ×4 (01:05→19:53)
[2022-06-07] MEDS: ALBUTEROL (0.083%) 2.5MG/3ML NEB HHN SCH ×4 (01:06→19:52)
[2022-06-07] MEDS: METOCLOPRAMIDE HCL 10MG/2ML VIAL IV SCH ×3 (05:33→17:41)
[2022-06-07 06:05] LABS: HEMOGLOBIN. 8.2 g/dL (14.0-18.0); MEAN CORPUSCULAR HEMOGLOBIN 30.3 pg (28.0-32.0); MEAN PLATELET VOLUME 8.3 fl (7.4-10.4); PLATELET 271 x1000/uL (130-400); RED CELL DISTRIBUTION WIDTH 17.8 % (11.6-14.6)
[2022-06-07] MEDS: SODIUM CHLORIDE 3% FOR INH 4ML UD NEB INH SCH (08:21)
[2022-06-07] MEDS: MEROPENEM 500MG in NORMAL SALINE 50ML IV SCH ×2 (08:36→20:11)
[2022-06-07] MEDS: DOCUSATE SODIUM SUGAR FREE 100MG/10ML UDC GT SCH (08:36)
[2022-06-07] MEDS: PANTOPRAZOLE SODIUM 40 MG/VIAL IV SCH (08:36)
[2022-06-07] MEDS: ACETYLCYSTEINE 200MG/ML 20% VIAL 4ML INH SCH (14:03)
[2022-06-07] MEDS ORDERED: ALBUTEROL (0.083%) 2.5MG/3ML NEB HHN PRN (15:15)
[2022-06-07] MEDS ORDERED: IPRATROPIUM/ALBUTEROL 0.5-3(2.5)MG/3ML NEB HHN PRN (15:15)
[2022-06-07] MEDS ORDERED: IPRATROPIUM BROMIDE (0.02%) 0.5MG/2.5ML NEB HHN PRN (15:15)
[2022-06-07 20:38] LABS: PLATELET ESTIMATE NORMAL
[2022-06-08] VITALS (12 sets, daily range): BP systolic 93–130; BP diastolic 51–81
[2022-06-08] MEDS: METOCLOPRAMIDE HCL 10MG/2ML VIAL IV SCH ×4 (00:33→17:42)
[2022-06-08] MEDS: ACETYLCYSTEINE 200MG/ML 20% VIAL 4ML INH SCH ×3 (01:36→15:53)
[2022-06-08] MEDS: ALBUTEROL (0.083%) 2.5MG/3ML NEB HHN SCH ×4 (01:36→20:11)
[2022-06-08] MEDS: IPRATROPIUM BROMIDE (0.02%) 0.5MG/2.5ML NEB HHN SCH ×4 (01:36→20:11)
[2022-06-08 06:26] LABS: HEMATOCRIT. 22.2 % (42.0-52.0); HEMOGLOBIN. 7.7 g/dL (14.0-18.0); MEAN CORPUSCULAR HEMOGLOBIN 30.5 pg (28.0-32.0); MEAN PLATELET VOLUME 8.3 fl (7.4-10.4); PLATELET 260 x1000/uL (130-400); RED BLOOD CELL COUNT 2.53 mill/uL (4.7-6.1); RED CELL DISTRIBUTION WIDTH 17.8 % (11.6-14.6)
[2022-06-08] MEDS: DOCUSATE SODIUM SUGAR FREE 100MG/10ML UDC GT SCH (08:29)
[2022-06-08] MEDS: MEROPENEM 500MG in NORMAL SALINE 50ML IV SCH ×2 (08:29→20:21)
[2022-06-08 10:40] LABS: PLATELET ESTIMATE NORMAL
[2022-06-08] MEDS: PANTOPRAZOLE SODIUM 40 MG/VIAL IV SCH (13:16)
[2022-06-08] MEDS: SODIUM CHLORIDE 3% FOR INH 4ML UD NEB INH SCH (14:01)
[2022-06-08] MEDS ORDERED: LACTULOSE 20G/30ML UDC PO PRN (15:45)
[2022-06-08] MEDS: LEVOFLOXACIN 500MG TABLET PO SCH (17:42)
[2022-06-09] VITALS (11 sets, daily range): BP systolic 97–124; BP diastolic 61–74
[2022-06-09] MEDS: ACETYLCYSTEINE 200MG/ML 20% VIAL 4ML INH SCH ×3 (00:10→16:14)
[2022-06-09] MEDS: ALBUTEROL (0.083%) 2.5MG/3ML NEB HHN SCH ×4 (00:10→20:41)
[2022-06-09] MEDS: IPRATROPIUM BROMIDE (0.02%) 0.5MG/2.5ML NEB HHN SCH ×4 (00:10→20:42)
[2022-06-09] MEDS: METOCLOPRAMIDE HCL 10MG/2ML VIAL IV SCH ×4 (00:14→18:22)
[2022-06-09 06:28] LABS: HEMATOCRIT. 21.2 % (42.0-52.0); HEMOGLOBIN. 7.4 g/dL (14.0-18.0); MEAN CORPUSCULAR HEMOGLOBIN 31.2 pg (28.0-32.0); MEAN CORPUSCULAR VOLUME 88.7 fL (80.0-94.0); PLATELET 268 x1000/uL (130-400); RED BLOOD CELL COUNT 2.39 mill/uL (4.7-6.1); RED CELL DISTRIBUTION WIDTH 17.5 % (11.6-14.6)
[2022-06-09] MEDS: DOCUSATE SODIUM SUGAR FREE 100MG/10ML UDC GT SCH (08:53)
[2022-06-09] MEDS: MEROPENEM 500MG in NORMAL SALINE 50ML IV SCH ×2 (08:54→21:41)
[2022-06-09] MEDS: PANTOPRAZOLE SODIUM 40 MG/VIAL IV SCH (08:54)
[2022-06-09] MEDS: SODIUM CHLORIDE 3% FOR INH 4ML UD NEB INH SCH (09:51)
[2022-06-09 10:47] LABS: PLATELET ESTIMATE NORMAL
[2022-06-09] MEDS ORDERED: BISACODYL 10MG SUPP PR NR (16:45)
[2022-06-10] VITALS (11 sets, daily range): BP systolic 96–112; BP diastolic 53–69
[2022-06-10] MEDS: METOCLOPRAMIDE HCL 10MG/2ML VIAL IV SCH ×4 (00:41→18:02)
[2022-06-10] MEDS: IPRATROPIUM BROMIDE (0.02%) 0.5MG/2.5ML NEB HHN SCH ×4 (01:59→20:28)
[2022-06-10] MEDS: ALBUTEROL (0.083%) 2.5MG/3ML NEB HHN SCH ×4 (01:59→20:28)
[2022-06-10] MEDS: ACETYLCYSTEINE 200MG/ML 20% VIAL 4ML INH SCH ×3 (02:01→14:45)
[2022-06-10 07:34] LABS: HEMOGLOBIN. 7.5 g/dL (14.0-18.0); MEAN CORPUSCULAR HEMOGLOBIN 30.3 pg (28.0-32.0); MEAN CORPUSCULAR VOLUME 88.6 fL (80.0-94.0); MEAN PLATELET VOLUME 8.2 fl (7.4-10.4); PLATELET 249 x1000/uL (130-400); RED BLOOD CELL COUNT 2.48 mill/uL (4.7-6.1); RED CELL DISTRIBUTION WIDTH 17.5 % (11.6-14.6)
[2022-06-10] MEDS: DOCUSATE SODIUM SUGAR FREE 100MG/10ML UDC GT SCH (09:01)
[2022-06-10] MEDS: PANTOPRAZOLE SODIUM 40 MG/VIAL IV SCH (09:01)
[2022-06-10] MEDS: MEROPENEM 500MG in NORMAL SALINE 50ML IV SCH ×2 (09:02→21:32)
[2022-06-10 12:50] LABS: PLATELET ESTIMATE NORMAL
[2022-06-10] MEDS: SODIUM CHLORIDE 3% FOR INH 4ML UD NEB INH SCH (14:44)
[2022-06-10] MEDS: LEVOFLOXACIN 500MG TABLET PO SCH (18:03)
[2022-06-10] MEDS: EPOETIN ALFA-EPBX 4,000 UNIT/ML VIAL SUBCUT SCH (21:32)
[2022-06-11] VITALS (12 sets, daily range): BP systolic 94–121; BP diastolic 56–77
[2022-06-11] MEDS: METOCLOPRAMIDE HCL 10MG/2ML VIAL IV SCH ×4 (01:45→17:06)
[2022-06-11] MEDS: IPRATROPIUM BROMIDE (0.02%) 0.5MG/2.5ML NEB HHN SCH ×4 (02:20→20:34)
[2022-06-11] MEDS: ACETYLCYSTEINE 200MG/ML 20% VIAL 4ML INH SCH ×3 (02:20→14:41)
[2022-06-11] MEDS: MEROPENEM 500MG in NORMAL SALINE 50ML IV SCH ×2 (08:13→21:42)
[2022-06-11] MEDS: PANTOPRAZOLE SODIUM 40 MG/VIAL IV SCH (08:13)
[2022-06-11] MEDS: DOCUSATE SODIUM SUGAR FREE 100MG/10ML UDC GT SCH ×3 (08:18→09:00)
[2022-06-11] MEDS: ALBUTEROL (0.083%) 2.5MG/3ML NEB HHN SCH ×3 (08:45→20:34)
[2022-06-11] MEDS: SODIUM CHLORIDE 3% FOR INH 4ML UD NEB INH SCH (08:45)
[2022-06-11 08:50] LABS: BG BASE EXCESS 0.5 mmol/L (-2.0-2.0); BG CARBOXYHEMOGLOBIN 0.3 % (0.5-1.5); BG DEOXYHEMOGLOBIN 3.3 % (0.0-5.0); BG FRACTION INSPIRED OXYGEN 50; BG HCO3 ACT 23.9 mmol/L (22.0-26.0); BG METHEMOGLOBIN 0.3 % (0.0-1.5); BG OXYGEN SATURATION 96.7 % (92.0-98.5); BG OXYHEMOGLOBIN 96.1 % (94.0-97.0); BG PCO2 33.3 mmHg (35.0-45.0); BG PH 7.474 (7.350-7.450); BG PO2 94.5 mmHg (75.0-100.0); BG SAMPLE SITE LEFT RADIAL; BG TOTAL HEMOGLOBIN 7.9 g/dL (12.0-18.0); BG VENT MODE VENT - AC
[2022-06-12] VITALS (14 sets, daily range): BP systolic 90–118; BP diastolic 53–71
[2022-06-12] MEDS: ALBUTEROL (0.083%) 2.5MG/3ML NEB HHN SCH ×4 (00:28→20:26)
[2022-06-12] MEDS: IPRATROPIUM BROMIDE (0.02%) 0.5MG/2.5ML NEB HHN SCH ×4 (00:28→20:27)
[2022-06-12] MEDS: METOCLOPRAMIDE HCL 10MG/2ML VIAL IV SCH ×4 (00:52→17:29)
[2022-06-12] MEDS: MEROPENEM 500MG in NORMAL SALINE 50ML IV SCH ×2 (08:44→21:05)
[2022-06-12] MEDS: DOCUSATE SODIUM SUGAR FREE 100MG/10ML UDC GT SCH (08:44)
[2022-06-12] MEDS: PANTOPRAZOLE SODIUM 40 MG/VIAL IV SCH (08:45)
[2022-06-12 10:43] LABS: HEMATOCRIT. 21.9 % (42.0-52.0); HEMOGLOBIN. 7.2 g/dL (14.0-18.0); MEAN CORPUSCULAR HEMOGLOBIN 29.3 pg (28.0-32.0); MEAN CORPUSCULAR VOLUME 88.9 fL (80.0-94.0); PLATELET 227 x1000/uL (130-400); RED BLOOD CELL COUNT 2.46 mill/uL (4.7-6.1)
[2022-06-12 16:46] LABS: PLATELET ESTIMATE NORMAL
[2022-06-12] MEDS: LEVOFLOXACIN 500MG TABLET PO SCH (17:29)
[2022-06-13] VITALS (12 sets, daily range): BP systolic 89–121; BP diastolic 57–73
[2022-06-13] MEDS: ALBUTEROL (0.083%) 2.5MG/3ML NEB HHN SCH ×3 (00:13→13:56)
[2022-06-13] MEDS: METOCLOPRAMIDE HCL 10MG/2ML VIAL IV SCH ×5 (00:13→23:29)
[2022-06-13] MEDS: IPRATROPIUM BROMIDE (0.02%) 0.5MG/2.5ML NEB HHN SCH ×3 (00:14→13:55)
[2022-06-13 06:56] LABS: HEMATOCRIT. 27.2 % (42.0-52.0); HEMOGLOBIN. 9.5 g/dL (14.0-18.0); MEAN CORPUSCULAR HEMOGLOBIN 31.1 pg (28.0-32.0); MEAN CORPUSCULAR VOLUME 89.2 fL (80.0-94.0); PLATELET 246 x1000/uL (130-400); RED BLOOD CELL COUNT 3.05 mill/uL (4.7-6.1); RED CELL DISTRIBUTION WIDTH 17.5 % (11.6-14.6)
[2022-06-13] MEDS: PANTOPRAZOLE SODIUM 40 MG/VIAL IV SCH (08:41)
[2022-06-13] MEDS: DOCUSATE SODIUM SUGAR FREE 100MG/10ML UDC GT SCH (08:41)
[2022-06-13] MEDS: SODIUM CHLORIDE 3% FOR INH 4ML UD NEB INH SCH (09:02)
[2022-06-13] MEDS: ACYCLOVIR 200 MG/5 ML ORAL SYR GT SCH ×3 (10:31→17:19)
[2022-06-13 12:50] LABS: PLATELET ESTIMATE NORMAL
[2022-06-13] MEDS ORDERED: BISACODYL 10MG SUPP PR NR (16:00)
[2022-06-13] MEDS: EPOETIN ALFA-EPBX 4,000 UNIT/ML VIAL SUBCUT SCH (20:23)
[2022-06-14] VITALS (12 sets, daily range): BP systolic 88–115; BP diastolic 53–74
[2022-06-14] MEDS: METOCLOPRAMIDE HCL 10MG/2ML VIAL IV SCH ×4 (05:20→23:06)
[2022-06-14 06:29] LABS: HEMATOCRIT. 25.1 % (42.0-52.0); HEMOGLOBIN. 8.4 g/dL (14.0-18.0); MEAN CORPUSCULAR HEMOGLOBIN 30.3 pg (28.0-32.0); MEAN CORPUSCULAR VOLUME 90.2 fL (80.0-94.0); MEAN PLATELET VOLUME 7.9 fl (7.4-10.4); PLATELET 248 x1000/uL (130-400); RED BLOOD CELL COUNT 2.79 mill/uL (4.7-6.1)
[2022-06-14] MEDS ORDERED: SODIUM POLYSTYRENE SULFONATE 15 G/60 ML BOT PO NR (08:30)
[2022-06-14] MEDS: DOCUSATE SODIUM SUGAR FREE 100MG/10ML UDC GT SCH (08:58)
[2022-06-14] MEDS: ACYCLOVIR 200 MG/5 ML ORAL SYR GT SCH ×3 (08:59→17:51)
[2022-06-14] MEDS: PANTOPRAZOLE SODIUM 40 MG/VIAL IV SCH (08:59)
[2022-06-14] MEDS ORDERED: NA PHOS,M-B/NA PHOS,DI-BA ENEMA 118ML PR NR (09:45)
[2022-06-14] MEDS: DULOXETINE HCL 20MG DR CAPSULE PO SCH (10:27)
[2022-06-14 11:10] LABS: NUCLEATED RED BLOOD CELLS 1 /100 WBC; PLATELET ESTIMATE NORMAL
[2022-06-14] MEDS: SODIUM CHLORIDE 3% FOR INH 4ML UD NEB INH SCH (12:21)
[2022-06-14] MEDS ORDERED: IPRATROPIUM/ALBUTEROL 0.5-3(2.5)MG/3ML NEB HHN PRN (12:30)
[2022-06-14] MEDS ORDERED: IPRATROPIUM BROMIDE (0.02%) 0.5MG/2.5ML NEB HHN PRN (12:30)
[2022-06-14] MEDS ORDERED: ALBUTEROL (0.083%) 2.5MG/3ML NEB HHN PRN (12:30)
[2022-06-14] MEDS ORDERED: IPRATROPIUM/ALBUTEROL 0.5-3(2.5)MG/3ML NEB HHN SCH (18:00)
[2022-06-14] MEDS: ALBUTEROL (0.083%) 2.5MG/3ML NEB HHN SCH (20:24)
[2022-06-14] MEDS: IPRATROPIUM BROMIDE (0.02%) 0.5MG/2.5ML NEB HHN SCH (20:25)
[2022-06-15] VITALS (9 sets, daily range): BP systolic 90–125; BP diastolic 53–74
[2022-06-15] MEDS: IPRATROPIUM BROMIDE (0.02%) 0.5MG/2.5ML NEB HHN SCH ×2 (02:03→08:44)
[2022-06-15] MEDS: ALBUTEROL (0.083%) 2.5MG/3ML NEB HHN SCH (02:03)
[2022-06-15] MEDS: METOCLOPRAMIDE HCL 10MG/2ML VIAL IV SCH ×2 (05:41→12:22)
[2022-06-15 06:48] LABS: HEMATOCRIT. 21.1 % (42.0-52.0); HEMOGLOBIN. 7.2 g/dL (14.0-18.0); MEAN CORPUSCULAR HEMOGLOBIN 30.5 pg (28.0-32.0); MEAN CORPUSCULAR VOLUME 89.1 fL (80.0-94.0); MEAN PLATELET VOLUME 8.2 fl (7.4-10.4); PLATELET 271 x1000/uL (130-400); RED BLOOD CELL COUNT 2.37 mill/uL (4.7-6.1); RED CELL DISTRIBUTION WIDTH 17.6 % (11.6-14.6)
[2022-06-15 07:12] LABS: *HSV 1 DNA PCR Positive (Negative); *HSV 2 DNA PCR Negative (Negative)
[2022-06-15 08:52] LABS: PLATELET ESTIMATE NORMAL
[2022-06-15] MEDS: PANTOPRAZOLE SODIUM 40 MG/VIAL IV SCH (09:28)
[2022-06-15] MEDS: DULOXETINE HCL 20MG DR CAPSULE PO SCH (09:28)
[2022-06-15] MEDS: ACYCLOVIR 200 MG/5 ML ORAL SYR GT SCH (09:28)
[2022-06-15] MEDS: DOCUSATE SODIUM SUGAR FREE 100MG/10ML UDC GT SCH (09:28)
== END 2022-06-15 15:25 | DRG 870 ==
LOC: ER 13:24 → MICUSO 18:26 → 5EST 05-30 22:41
PROVIDERS: ADMIT Internal Medicine; ATTEND Internal Medicine
PROC: 5A1945Z Respiratory Ventilation, 24-96 Consecutive Hours (ICD-10-PCS; 2022-05-28)
PROC: 30233N1 Transfusion of Nonautologous Red Blood Cells into Peripheral Vein, Percutaneous Approach (ICD-10-PCS; 2022-05-28)
PROC: 5A1955Z Respiratory Ventilation, Greater than 96 Consecutive Hours (ICD-10-PCS; 2022-05-30)
PROC: 0W9B3ZZ Drainage of Left Pleural Cavity, Percutaneous Approach (ICD-10-PCS; 2022-06-01)
PROC: 5A12012 Performance of Cardiac Output, Single, Manual (ICD-10-PCS; principal; 2022-06-03)
PROC: 0W993ZZ Drainage of Right Pleural Cavity, Percutaneous Approach (ICD-10-PCS; 2022-06-03)
DX: A41.50 Gram-negative sepsis, unspecified (principal); N17.0 Acute kidney failure with tubular necrosis; J15.0 Pneumonia due to Klebsiella pneumoniae; J96.20 Acute and chronic respiratory failure, unspecified whether with hypoxia or hypercapnia; I13.0 Hypertensive heart and chronic kidney disease with heart failure and stage 1 through stage 4 chronic kidney disease, or unspecified chronic kidney disease; N39.0 Urinary tract infection, site not specified; E87.1 Hypo-osmolality and hyponatremia; G93.40 Encephalopathy, unspecified; Z99.11 Dependence on respirator [ventilator] status; R65.20 Severe sepsis without septic shock; Z20.822 Contact with and (suspected) exposure to COVID-19; F10.21 Alcohol dependence, in remission; I50.9 Heart failure, unspecified; N18.9 Chronic kidney disease, unspecified; R13.12 Dysphagia, oropharyngeal phase; R74.01 Elevation of levels of liver transaminase levels; K80.20 Calculus of gallbladder without cholecystitis without obstruction; D63.1 Anemia in chronic kidney disease; B00.1 Herpesviral vesicular dermatitis; Z88.1 Allergy status to other antibiotic agents; Z87.11 Personal history of peptic ulcer disease; Z86.73 Personal history of transient ischemic attack (TIA), and cerebral infarction without residual deficits; Z93.0 Tracheostomy status; Z93.1 Gastrostomy status
CPT/HCPCS: 32555; 36415; 36600; 71045; 74018; 74176; 76604; 76700; 76705; 76770; 80048; 80053; 80076; 81003; 82040; 82105; 82270; 82375; 82378; 82550; 82570; 82575; 82607; 82728; 82746; 82805; 82962; 83540; 83550; 83605; 83615; 84145; 84156; 84484; 85025; 86038; 86160; 86705; 86709; 86803; 86850; 86900; 86920; 87070; 87077; 87186; 87340; 87426; 87529; 88108; 92950; 93005; 94002; 94003; 94640; 99291; A6261; C9113; C9803; J0692; J0885; J1644; J2185; J2543; J2765; J3370; J3480; J3490; J7030; J7042; J7050; J7060; J7608; P9016

== ENCOUNTER 2022-08-07 03:28 | Inpatient (IN) | payer BC, MEDICAID ==
[2022-08-07] VITALS (10 sets, daily range): BP systolic 88–118; BP diastolic 44–85
[~2022-08-07] VITALS: Ht 172 cm; Wt 79.2 kg
[2022-08-07 04:27] LABS: HEMATOCRIT. 29.2 % (42.0-52.0); HEMOGLOBIN. 9.7 g/dL (14.0-18.0); MEAN CORPUSCULAR HEMOGLOBIN 30.2 pg (28.0-32.0); MEAN CORPUSCULAR VOLUME 91.2 fL (80.0-94.0); MEAN PLATELET VOLUME 7.6 fl (7.4-10.4); PLATELET 384 x1000/uL (130-400); RED CELL DISTRIBUTION WIDTH 18.6 % (11.6-14.6)
[2022-08-07 04:32] LABS: CHLORIDE 93 mEq/L (98-107)
[2022-08-07 04:47] LABS: BG CARBOXYHEMOGLOBIN 0.3 % (0.5-1.5); BG DEOXYHEMOGLOBIN 8.1 % (0.0-5.0); BG FRACTION INSPIRED OXYGEN 40; BG METHEMOGLOBIN 0.3 % (0.0-1.5); BG OXYGEN SATURATION 91.9 % (92.0-98.5); BG OXYHEMOGLOBIN 91.3 % (94.0-97.0); BG PCO2 66.9 mmHg (35.0-45.0); BG PH 7.337 (7.350-7.450); BG PO2 69.7 mmHg (75.0-100.0); BG SAMPLE SITE RIGHT RADIAL; BG TOTAL HEMOGLOBIN 13.1 g/dL (12.0-18.0); BG VENT MODE VENT - AC
[2022-08-07 05:28] LABS: PLATELET ESTIMATE NORMAL
[2022-08-07] MEDS ORDERED: IPRATROPIUM/ALBUTEROL 0.5-3(2.5)MG/3ML NEB HHN PRN (07:45)
[2022-08-07] MEDS: IPRATROPIUM/ALBUTEROL 0.5-3(2.5)MG/3ML NEB HHN SCH ×2 (09:17→14:24)
[2022-08-07] MEDS ORDERED: ONDANSETRON HCL 4MG/2ML INJ IV PRN (12:00)
[2022-08-07] MEDS ORDERED: IPRATROPIUM/ALBUTEROL 0.5-3(2.5)MG/3ML NEB HHN SCH (12:00)
[2022-08-07] MEDS ORDERED: PIPERACILLIN/TAZ 3.375G PREMIX 50 ML IV SCH (12:00)
[2022-08-07] MEDS ORDERED: ACETAMINOPHEN 325MG TABLET PO PRN (12:00)
[2022-08-07] MEDS: VANCOMYCIN 1,750 MG in DEXT 5% WATER 500 ML IV NR ×2 (13:00→22:24)
[2022-08-07] MEDS ORDERED: SODIUM BICARBONATE 8.4% 1 MEQ/ML 50ML SYR IV ONE (13:25)
[2022-08-07] MEDS: PANTOPRAZOLE SODIUM 40 MG/VIAL IV SCH (13:39)
[2022-08-07] MEDS: ENOXAPARIN 40MG/0.4ML SYR SUBCUT SCH (13:40)
[2022-08-07 13:55] LABS: HEPATITIS B SURFACE ANTIGEN NEGATIVE
[2022-08-07] MEDS ORDERED: PIPERACILLIN/TAZOBACTAM 3.375G in DEXT 5% WATER 50ML IV SCH (14:00)
[2022-08-07 16:03] LABS: CREATINE KINASE 104 IU/L (39-308); CREATINE KINASE MB FRACTION 5.2 ng/mL (0.5-3.6)
[2022-08-07] MEDS: PIPERACILLIN/TAZOBACTAM 3.375 G in DEXTROSE 5% WATER 50 ML IV SCH (23:52)
[2022-08-08] VITALS (20 sets, daily range): BP systolic 80–127; BP diastolic 52–93
[2022-08-08 00:07] LABS: CREATINE KINASE MB FRACTION 4.1 ng/mL (0.5-3.6)
[2022-08-08] MEDS: IPRATROPIUM/ALBUTEROL 0.5-3(2.5)MG/3ML NEB HHN SCH ×4 (01:46→20:38)
[2022-08-08 06:40] LABS: BASOPHILS % 0.6 % (0.0-2.0); EOSINOPHILS % 7.3 % (0.0-5.0); HEMATOCRIT. 23.1 % (42.0-52.0); LYMPHOCYTES % 9.2 % (20.0-50.0); MEAN CORPUSCULAR HEMOGLOBIN 31.1 pg (28.0-32.0); MEAN PLATELET VOLUME 7.5 fl (7.4-10.4); MONOCYTES % 9.5 % (2.0-8.0); NEUTROPHILS % 73.4 % (40.0-76.0); PLATELET 263 x1000/uL (130-400); RED BLOOD CELL COUNT 2.57 mill/uL (4.7-6.1)
[2022-08-08] MEDS: PANTOPRAZOLE SODIUM 40 MG/VIAL IV SCH (09:32)
[2022-08-08 09:33] LABS: BG BASE EXCESS 8.2 mmol/L (-2.0-2.0); BG FRACTION INSPIRED OXYGEN 40; BG HCO3 ACT 31.2 mmol/L (22.0-26.0); BG OXYGEN SATURATION 98.6 % (92.0-98.5); BG PH 7.544 (7.350-7.450); BG PO2 128.8 mmHg (75.0-100.0); BG SAMPLE SITE LEFT RADIAL; BG TOTAL HEMOGLOBIN 8.4 g/dL (12.0-18.0); BG TOTAL RESPIRATORY RATE 16 b/min; BG VENT MODE VENT - AC
[2022-08-08 09:34] LABS: BG CARBOXYHEMOGLOBIN 0.2 % (0.5-1.5); BG DEOXYHEMOGLOBIN 1.4 % (0.0-5.0); BG METHEMOGLOBIN 0.3 % (0.0-1.5); BG OXYHEMOGLOBIN 98.1 % (94.0-97.0)
[2022-08-08] MEDS: PIPERACILLIN/TAZOBACTAM 3.375 G in DEXTROSE 5% WATER 50 ML IV SCH ×2 (14:09→21:21)
[2022-08-08] MEDS: ENOXAPARIN 40MG/0.4ML SYR SUBCUT SCH (14:10)
[2022-08-09] VITALS (19 sets, daily range): BP systolic 77–153; BP diastolic 37–93
[2022-08-09] MEDS: IPRATROPIUM/ALBUTEROL 0.5-3(2.5)MG/3ML NEB HHN SCH ×4 (01:59→21:08)
[2022-08-09 06:59] LABS: HEMATOCRIT. 27.3 % (42.0-52.0); HEMOGLOBIN. 9.1 g/dL (14.0-18.0); MEAN CORPUSCULAR HEMOGLOBIN 30.5 pg (28.0-32.0); MEAN CORPUSCULAR VOLUME 91.2 fL (80.0-94.0); MEAN PLATELET VOLUME 7.6 fl (7.4-10.4); PLATELET 270 x1000/uL (130-400); RED BLOOD CELL COUNT 2.99 mill/uL (4.7-6.1); RED CELL DISTRIBUTION WIDTH 18.7 % (11.6-14.6)
[2022-08-09] MEDS: PANTOPRAZOLE SODIUM 40 MG/VIAL IV SCH (08:18)
[2022-08-09] MEDS: FUROSEMIDE 40MG/4ML VIAL IVP SCH (09:07)
[2022-08-09] MEDS: PIPERACILLIN/TAZOBACTAM 3.375 G in DEXTROSE 5% WATER 50 ML IV SCH ×2 (10:30→21:02)
[2022-08-09] MEDS: ENOXAPARIN 40MG/0.4ML SYR SUBCUT SCH (12:20)
[2022-08-09 13:02] LABS: PLATELET ESTIMATE NORMAL
[2022-08-09] MEDS ORDERED: VANCOMYCIN 750MG PREMIX 150 ML IV NR (18:00)
[2022-08-10] VITALS (14 sets, daily range): BP systolic 95–151; BP diastolic 52–87
[2022-08-10] MEDS: IPRATROPIUM/ALBUTEROL 0.5-3(2.5)MG/3ML NEB HHN SCH ×4 (01:37→20:45)
[2022-08-10 06:53] LABS: BASOPHILS % 1.1 % (0.0-2.0); EOSINOPHILS % 13.3 % (0.0-5.0); HEMATOCRIT. 24.1 % (42.0-52.0); HEMOGLOBIN. 8.2 g/dL (14.0-18.0); LYMPHOCYTES % 11.7 % (20.0-50.0); MEAN CORPUSCULAR HEMOGLOBIN 30.7 pg (28.0-32.0); MEAN CORPUSCULAR VOLUME 90.5 fL (80.0-94.0); MEAN PLATELET VOLUME 7.4 fl (7.4-10.4); MONOCYTES % 9.2 % (2.0-8.0); NEUTROPHILS % 64.7 % (40.0-76.0); PLATELET 248 x1000/uL (130-400); RED BLOOD CELL COUNT 2.66 mill/uL (4.7-6.1); RED CELL DISTRIBUTION WIDTH 18.4 % (11.6-14.6)
[2022-08-10] MEDS: FUROSEMIDE 40MG/4ML VIAL IVP SCH (09:00)
[2022-08-10] MEDS: PANTOPRAZOLE SODIUM 40 MG/VIAL IV SCH (09:00)
[2022-08-10] MEDS: PIPERACILLIN/TAZOBACTAM 3.375 G in DEXTROSE 5% WATER 50 ML IV SCH ×2 (09:07→22:29)
[2022-08-10] MEDS: ENOXAPARIN 40MG/0.4ML SYR SUBCUT SCH (11:29)
[2022-08-10 12:19] LABS: INR 1.2; PROTHROMBIN TIME 12.6 sec (9.6-11.0)
[2022-08-11] VITALS (14 sets, daily range): BP systolic 90–154; BP diastolic 44–88
[2022-08-11] MEDS: IPRATROPIUM/ALBUTEROL 0.5-3(2.5)MG/3ML NEB HHN SCH ×4 (02:34→20:55)
[2022-08-11 08:03] LABS: BG BASE EXCESS 3.8 mmol/L (-2.0-2.0); BG CARBOXYHEMOGLOBIN 0.3 % (0.5-1.5); BG DEOXYHEMOGLOBIN 1.2 % (0.0-5.0); BG METHEMOGLOBIN 0.4 % (0.0-1.5); BG OXYGEN SATURATION 98.8 % (92.0-98.5); BG OXYHEMOGLOBIN 98.1 % (94.0-97.0); BG PCO2 40.3 mmHg (35.0-45.0); BG PH 7.459 (7.350-7.450); BG PO2 140.8 mmHg (75.0-100.0); BG SAMPLE SITE RIGHT RADIAL; BG TOTAL HEMOGLOBIN 8.3 g/dL (12.0-18.0); BG VENT MODE VENT - AC
[2022-08-11] MEDS: PIPERACILLIN/TAZOBACTAM 3.375 G in DEXTROSE 5% WATER 50 ML IV SCH ×2 (09:50→20:17)
[2022-08-11] MEDS: FUROSEMIDE 40MG/4ML VIAL IVP SCH (09:50)
[2022-08-11] MEDS: PANTOPRAZOLE SODIUM 40 MG/VIAL IV SCH (09:50)
[2022-08-11] MEDS: ENOXAPARIN 40MG/0.4ML SYR SUBCUT SCH (15:18)
[2022-08-12] VITALS (18 sets, daily range): BP systolic 96–151; BP diastolic 48–91
[2022-08-12] MEDS: IPRATROPIUM/ALBUTEROL 0.5-3(2.5)MG/3ML NEB HHN SCH ×2 (01:54→09:31)
[2022-08-12 09:01] LABS: BG BASE EXCESS 3.5 mmol/L (-2.0-2.0); BG CARBOXYHEMOGLOBIN 0.3 % (0.5-1.5); BG DEOXYHEMOGLOBIN 2.4 % (0.0-5.0); BG FRACTION INSPIRED OXYGEN 40; BG HCO3 ACT 29.1 mmol/L (22.0-26.0); BG METHEMOGLOBIN 0.4 % (0.0-1.5); BG OXYGEN SATURATION 97.6 % (92.0-98.5); BG OXYHEMOGLOBIN 96.9 % (94.0-97.0); BG PCO2 49.7 mmHg (35.0-45.0); BG PH 7.386 (7.350-7.450); BG PO2 108.9 mmHg (75.0-100.0); BG SAMPLE SITE RIGHT RADIAL; BG TOTAL HEMOGLOBIN 9.3 g/dL (12.0-18.0); BG VENT MODE VENT - PRVC
[2022-08-12] MEDS: PANTOPRAZOLE SODIUM 40 MG/VIAL IV SCH (09:38)
[2022-08-12] MEDS: PIPERACILLIN/TAZOBACTAM 3.375 G in DEXTROSE 5% WATER 50 ML IV SCH ×2 (09:38→20:42)
[2022-08-12] MEDS: FUROSEMIDE 40MG/4ML VIAL IVP SCH (09:38)
[2022-08-12] MEDS: ENOXAPARIN 40MG/0.4ML SYR SUBCUT SCH (13:29)
== END 2022-08-12 22:30 | DRG 207 ==
LOC: ER 03:41 → EDBEDREQ 05:34 → EDBEDREQTM 05:34 → EDBEDREQSVC 09:23 → 5EST 11:25
PROVIDERS: ADMIT Internal Medicine; ATTEND Internal Medicine
PROC: 5A1955Z Respiratory Ventilation, Greater than 96 Consecutive Hours (ICD-10-PCS; 2022-08-07)
PROC: 5A1D70Z Performance of Urinary Filtration, Intermittent, Less than 6 Hours Per Day (ICD-10-PCS; 2022-08-08)
PROC: 5A1D70Z Performance of Urinary Filtration, Intermittent, Less than 6 Hours Per Day (ICD-10-PCS; 2022-08-09)
PROC: 0JPT3XZ Removal of Tunneled Vascular Access Device from Trunk Subcutaneous Tissue and Fascia, Percutaneous Approach (ICD-10-PCS; principal; 2022-08-10)
DX: J96.01 Acute respiratory failure with hypoxia (principal); N18.6 End stage renal disease; Z99.11 Dependence on respirator [ventilator] status; I13.2 Hypertensive heart and chronic kidney disease with heart failure and with stage 5 chronic kidney disease, or end stage renal disease; N17.9 Acute kidney failure, unspecified; I42.9 Cardiomyopathy, unspecified; J39.8 Other specified diseases of upper respiratory tract; E83.52 Hypercalcemia; Z20.822 Contact with and (suspected) exposure to COVID-19; E11.22 Type 2 diabetes mellitus with diabetic chronic kidney disease; I50.9 Heart failure, unspecified; D63.8 Anemia in other chronic diseases classified elsewhere; I67.1 Cerebral aneurysm, nonruptured; F10.10 Alcohol abuse, uncomplicated; Z99.2 Dependence on renal dialysis; Z86.73 Personal history of transient ischemic attack (TIA), and cerebral infarction without residual deficits; Z86.74 Personal history of sudden cardiac arrest; Z87.01 Personal history of pneumonia (recurrent); Z93.1 Gastrostomy status
CPT/HCPCS: 36415; 36589; 36600; 71045; 80048; 80053; 80202; 82375; 82550; 82553; 82805; 83735; 84484; 85025; 86705; 86709; 86803; 87340; 87426; 90935; 93005; 93306; 94002; 94003; 94640; 99291; A6261; C9113; J1650; J1940; J2543; J3370; J3490; J7060